=== PATIENT | male | born 1980 | race Caucasian/White ===

== ENCOUNTER 2024-07-01 18:16 | Emergency (ER) | payer BC, OTHER ==
--- OUTSIDE RECORDS SUMMARY | 2024-07-01 18:22 | XMS REPORT | Continuity of Care Document ---
Author Name Unknown Address [address] [facility] [place] [address] [facility] [place] [facility] [address] [facility] [place] [address] Care Team Providers Care Veterinarian Laboratory Animal Care Name Role Phone SARAI TUCKER Primary Care Physician Unavaila DYLON Aldana Attending Clinician Unavailable SARAI TUCKER Attending Clinician Unavailable [facility] Attending Clinician Unavailable Dylon Vargas MD Attending Clinician [phone] CHELSY KOEHLER Attending Clinician Unavailable Doctor Unassigned, [place] Attending Clinician U navailable Sarai Miranda Attending Clinician +[phone] Chelsy Koehler MD Attending Clinician [phone] Lab, Ang - Db Attending Clinician Unavailable JENNIFER TAYLOR Attending Clinician Unavailable NANCY BEST Attending Clinician Unavailable Nancy Best MD Attending Clinician [phone] Jennifer Pickering Attending Clinician +[phone] Brooke Nance LVN Attending Clinician + [phone] NOHELIA CUEVAS Attending Clinician Unavailable Jabier CORONADO, Pedro Attending Clinician + [phone] Nohelia Cuevas DO Attending Clinician [phone] JOSÉ SANTIZO Attending Clinician Unavailable JOSÉ SANTIZO Attending Clinician Unavailable José Santizo MD Attending Clinician +[phone] Luis Bueno MD Attending Clinician +- [phone] Jennifer Bello MD Attending Clinician +[phone] Laverne Bhardwaj MD Attending Clinician [phone] Therapist, [facility] Respiratory Attending Clinician JENNIFER Corey Attending Clinician Unavailable JENNIFER BELLO Attending Clinician Unavailable LAVERNE BHARDWAJ Attending Clinician UnavailLAVERNE Mtz Attending Clinician UnavailDylon Handley MD Attending Clinician [phone] Laverne Bhardwaj MD Attending Clinician [phone] LEYDI KOENIG Attending Clinician UnavailLEYDI Porter Attending Clinician UnavailLuis Wong MD Attending Clinician +[phone] Sarai Miranda Attending Clinician +[phone] [facility], [facility] Sleep Lab Attending Clinician UnavailLeydi Porter MD Attending Clinician + [phone] Radiology Attending Clinician Unavailable RADIOLOGY Attending Clinician Unavailable [facility] Attending Clinician Unavailable Garth CARBALLO PhD, Nohelia Attending Clinician [phone] Lowell MBBS, Yulisa Attending Clinician Unavailab NOHELIA Irvin Attending Clinician Unavailable Pob, [facility] Lab Main Attending Clinician Unavailzachariah veras Lab, Ang - Db Attending Clinician Unavailable Unknown, Attending Attending Clinician Unavailab NANCY Taylor Admitting Clinician Unavailable NOHELIA CUEVAS Admitting Clinician Unavailable Nohelia Cuevas DO Admitting Clinician +[phone] JOSÉ SANTIZO Admitting Clinician Unavailable DYLON VARGAS Admitting Clinician Unavailable Payers Payer Name Policy Type Policy Number Effective Date Expirati on Date Source [facility] STATE [id number] 2023 00:00:00 Problems Condition Name Condition Details Condition Category Status Onset Date Resolution Date Last Treatment Date Treating Clinician Comments Source Claudicati on of both lower extremitie s Claudicati on of both lower extremitie s Disease Active 12-12 00:00: 00 [facility] Abnormal ECG Abnormal ECG Disease Active 11-24 00:00: 00 [facility] Chest pain, unspecifie d type Chest pain, unspecifie d type Disease Active 8-30 00:00: 00 [facility] JAMEY (obstructi ve sleep apnea) JAMEY (obstructi ve sleep apnea) Disease Active 7-05 00:00: 00 [facility] Acute bronchitis , unspecifie d Acute bronchitis , unspecifie d Disease Active 09-21 00:00: 00 [facility] Acute thoracic back pain Acute thoracic back pain Disease Active 09-21 00:00: 00 [facility] Anatomical narrow angle, bilateral Anatomical narrow angle, bilateral Disease Active 09-21 00:00: 00 [facility] Asthma Asthma Disease Active 09-21 00:00: 00 [facility] Cervicalgi a Cervicalgi a Disease Active 09-21 00:00: 00 [facility] Back pain Back pain Disease Active 09-21 00:00: 00 [facility] Low back pain Low back pain Disease Active 09-21 00:00: 00 [facility] Chest pain, unspecifie d Chest pain, unspecifie d Disease Active 09-21 00:00: 00 [facility] Chronic migraine without aura, intractabl e, without status migrainosu s Chronic migraine without aura, intractabl e, without status migrainosu s Disease Active 09-21 00:00: 00 [facility] Depression , unspecifie d Depression , unspecifie d Disease Active 09-21 00:00: 00 [facility] Disappeara nce and of family member Disappeara nce and of family member Disease Active 09-21 00:00: 00 [facility] Exposure to potentiall y hazardous substance Exposure to potentiall y hazardous substance Disease Active 09-21 00:00: 00 Overview: Formattin g of this note might be different from the original. 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 Disease Active 09-21 00:00: 00 [facility] Lumbar spondylosi s Lumbar spondylosi s Disease Active 09-21 00:00: 00 [facility] Obesity Obesity Disease Active 09-21 00:00: 00 [facility] Counseling , unspecifie d Counseling , unspecifie d Disease Active 09-21 00:00: 00 [facility] Pain in joint involving pelvic region and thigh Pain in joint involving pelvic region and thigh Disease Active 09-21 00:00: 00 [facility] Essential hypertensi on Essential hypertensi on Disease Active 09-21 00:00: 00 [facility] Viral pneumonia, unspecifie d Viral pneumonia, unspecifie d Disease Active 09-21 00:00: 00 [facility] Uncontroll ed hypertensi on Uncontroll ed hypertensi on Disease Active 09-21 00:00: 00 [facility] Acute cough Acute cough Disease Active 08-24 00:00: 00 [facility] Acute cough Acute cough Disease Active 08-24 00:00: 00 [facility] Hypogammag lobulinemi a Hypogammag lobulinemi a Disease Active 08-24 00:00: 00 [facility] 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 08-24 00:00: 00 [facility] Chronic cough Chronic cough Disease Active 08-24 00:00: 00 [facility] Chronic low back pain Chronic low back pain Disease Active 03-28 00:00: 00 [facility] Other chest pain Other chest pain Disease Active 03-28 00:00: 00 [facility] Right upper quadrant abdominal pain Right upper quadrant abdominal pain Disease Active 03-28 00:00: 00 [facility] Tobacco use disorder Tobacco use disorder Disease Active 03-28 00:00: 00 Overview: Formattin g of this note might be different from the original. Oct 17, 2012 Entered By: Iftikhar MATTHEWS Comment: SMOKER [facility] Allergies, Adverse Reactions, Alerts Allergy Name Allergy Type Status Severity Reaction(s) Onset Date Inactive Date Treating Clinician Comments Source Nsaids (Non-James roidal Anti-Inf lammator y Drug) Propensi ty to adverse reaction s Active Swelling 12-07 00:00: 00 [facility] Nsaids (Non-James roidal Anti-Inf lammator y Drug) Propensi ty to adverse reaction s Active Swelling 12-07 00:00: 00 [facility] NSAIDS (NON-JAMES ROIDAL ANTI-INF LAMMATOR Y DRUG) Drug Class Active High Swelling 12-07 00:00: 00 [facility] BROMFENA C DRUG INGREDI Active Unknown-Cmnt 04-22 00:00: 00 [facility] Bromfena c Drug Allergy Active Unknown - See comments 04-22 00:00: 00 [facility] GABAPENT IN DRUG INGREDI Active Other-Cmnt 09-17 00:00: 00 [facility] Gabapent in Drug Allergy Active Other - See comments 09-17 00:00: 00 Causes stutterin g [facility] ANTIPYRI NE DRUG INGREDI Active Swelling 05-16 00:00: 00 [facility] Antipyri ne Drug Allergy Active Anaphylaxis 05-16 00:00: 00 [facility] IBUPROFE N DRUG INGREDI Active Other-Cmnt 11-28 00:00: 00 [facility] Ibuprofe n Drug Allergy Active Itching 11-28 00:00: 00 [facility] Social History Social Habit Start Date Stop Date Quantity Comments Source History of tobacco use Passive smoker [facility] Alcoholic beverage intake 2024-05-16 00:00:00 2024-05-16 00:00:00 Ex-drinker (finding) [facility] Education 2023-11-25 00:00:00 2023-11-25 00:00:00 16 [facility] Tobacco use and exposure 2023-09-22 00:00:00 2023-09-22 00:00:00 User of smokeless tobacco [facility] History of Social function 2023-09-07 00:00:00 2023-09-07 00:00:00 [facility] Sex assigned at 1980 00:00:00 1980 00:00:00 [facility] Smoking Status Start Date Stop Date Source Tobacco smoking consumption unknown [facility] Ex-smoker 2023-09-22 00:00:00 2023-09-22 00:00:00 [facility] Medications Ordered Medication Name Filled Medication Name Start Date Stop Date Current Medication? Ordering Clinician Indication Dosage Frequency Signature (SIG) Comments Components Source metFORMIN 500 mg 24 hr tablet 2023-03 08:22: 00 Yes 500mg Take 1 tablet by mouth daily with breakfast. [facility] losartan 50 mg tablet 2023-03 00:00: 00 01-10 04:59 :00 No [id number] 50mg Take 1 tablet by mouth in the morning and 1 tablet in the evening. [facility] carvediloL 12.5 mg tablet 2023-03 00:00: 00 01-10 04:59 :00 No [id number] 12.5mg Take 1 tablet by mouth in the morning and 1 tablet in the evening. Take with meals. [facility] diltiazem (CARDIZEM CD) 180 mg 24 hr capsule 2023-03 00:00: 00 01-10 04:59 :00 No [id number] 180mg Take 1 capsule by mouth in the morning. [facility] iopamidol (ISOVUE 370-500 mL) injection 85 mL 12-20:00: 00 12-20 18:03 :00 No [id number] 85mL 85 mL, Intravenou s, ONCE, 1 dose, On Tue12/21/23 at 1400, Routine [facility] losartan 50 mg tablet 12-12 00:00: 00 01-09 00:00 :00 No 50mg Take 1 tablet by mouth in the morning for 180 days. [facility] isosorbide mononitrate 30 mg 24 hr tablet 12-12 00:00: 00 01-09 00:00 :00 No [id number] 30mg Take 1 tablet by mouth at bedtime for 180 days. [facility] diltiazem (CARDIZEM CD) 180 mg 24 hr capsule 12-12 00:00: 00 01-09 00:00 :00 No [id number] 180mg Take 1 capsule by mouth in the morning for 180 days. [facility] carvediloL (COREG) tablet 12.5 mg 11-25 13:00: 00 Yes 12.5mg 12.5 mg, Oral, BID MEALS, First dose on Tue11/26/23 at 0800, Until Discontinu ed, Routine [facility] carvediloL 12.5 mg tablet 11-25 00:00: 00 01-09 00:00 :00 No [id number] 12.5mg Take 1 tablet by mouth in the morning and 1 tablet in the evening. Take with meals. Do all this for 60 days. [facility] losartan 25 mg tablet 11-25 00:00: 00 12-12 00:00 :00 No [id number] 25mg Take 1 tablet by mouth in the morning and 1 tablet in the evening. Do all this for 60 days. [facility] losartan (COZAAR) tablet 25 mg 11-24 23:30: 00 Yes 25mg 25 mg, Oral, BID, First dose on Tue11/25/23 at 1830, Until Discontinu ed, Routine [facility] enoxaparin (LOVENOX) injection 40 mg 11-24 22:00: 00 Yes 40mg 40 mg, Subcutaneo us, DAILY, First dose on Tue11/25/23 at 1700, Until Discontinu ed, Routine [facility] ondansetron (ZOFRAN (PF)) injection 4 mg 11-24 16:51: 34 Yes 4mg 4 mg, Slow IV Push, Q6HPRN, Starting on Tue11/25/23 at 1151, Until Discontinu ed, Routine, Nausea and Vomiting (N/V) [facility] acetaminoph en (TYLENOL) tablet 650 mg 11-24 16:51: 27 Yes 650mg 650 mg, Oral, Q6HPRN, Starting on Tue11/25/23 at 1151, Until Discontinu ed, Routine, Pain (scale 1-3) [facility] nitroglycer in (NITROSTAT) sublingual tablet 0.4 mg 11-24 14:45: 00 11-24 14:37 :00 No [id number] .4mg 0.4 mg, Sublingual , ONCE, 1 dose, On Tue11/25/23 at 0945, Routine [facility] cefpodoxime 200 mg tablet 11-22 11:07: 52 Yes 200mg Take 1 tablet by mouth in the morning and 1 tablet in the evening. [facility] nitroglycer in 0.4 mg sublingual tablet 11-22 00:00: 00 01-09 00:00 :[id number] 1 tablet under the tongue every 5 (five) minutes as needed for Chest pain. [facility] propranolol LA 160 mg 24 hr capsule 09-21 00:00: 00 11-25 00:00 :00 No [id number] 160mg Take 1 capsule by mouth in the morning. [facility] iopamidol (ISOVUE 370-500 mL) injection 85 mL 09-12 12:54: 00 09-12 12:59 :00 No [id number] 85mL 85 mL, Intravenou s, ONCE, 1 dose, On Tue09/13/23 at 0800, Routine [facility] budesonide- glycopyr-fo rmoterol (BREZTRI AEROSPHERE) 160-9-4.8 mcg/actuati on HFAA 09-06 08:55: 12 Yes [id number] 2{puff} Inhale 2 Puffs in the morning and 2 Puffs in the evening. [facility] albuterol 1.25 mg/3 mL nebulizer solution 09-06 08:55: 12 Yes [id number] 1.25mg Use 3 mL as directed every 6 (six) hours as needed for Wheezing. [facility] albuterol sulfate 90 mcg/actuati on AePB 09-06 08:55: 12 Yes [id number] 2{puff} Inhale 2 Puffs every 6 (six) hours as needed for Other (wheezing or shortness of breath). [facility] propranolol LA 160 mg 24 hr capsule 09-06 08:55: 12 09-21 00:00 :00 No 160mg Take 1 capsule by mouth in the morning. [facility] Immunizations Ordered Immunization Name Filled Immunization Name Date Status Comments Source HEPLISAV HEP B, ADULT 2 DOSE, IM 2023-12-14 00:00:00 Completed [facility] Flu Injectable MDCK Pres-Free (FLUCELVAX) 2023-12-14 00:00:00 Completed HEPLISAV HEP B, ADULT 2 DOSE, IM 2023-12-14 00:00:00 Completed [facility] Flu Injectable MDCK Pres-Free (FLUCELVAX) 2023-12-14 00:00:00 Completed HEPLISAV HEP B, ADULT 2 DOSE, IM 2023-12-14 00:00:00 Completed [facility] Flu Injectable MDCK Pres-Free (FLUCELVAX) 2023-12-14 00:00:00 Completed Pneumococcal 20 Conjugate, PCV20 (Prevnar 20) 2022-08-10 00:00:00 Completed TDAP 2022-08-10 00:00:00 Completed Pneumococcal 20 Conjugate, PCV20 (Prevnar 20) 2022-08-10 00:00:00 Completed [facility] TDAP 2022-08-10 00:00:00 Completed Pneumococcal 20 Conjugate, PCV20 (Prevnar 20) 2022-08-10 00:00:00 Completed [facility] TDAP 2022-08-10 00:00:00 Completed SARS-COV-2 COVID-19 MODERNA 12+ YRS VACCINE 2020-07-23 00:00:00 Completed SARS-COV-2 COVID-19 MODERNA 12+ YRS VACCINE 2020-07-23 00:00:00 Completed SARS-COV-2 COVID-19 MODERNA 12+ YRS VACCINE 2020-07-23 00:00:00 Completed SARS-COV-2 COVID-19 MODERNA 12+ YRS VACCINE 2020-06-25 00:00:00 Completed SARS-COV-2 COVID-19 MODERNA 12+ YRS VACCINE 2020-06-25 00:00:00 Completed SARS-COV-2 COVID-19 MODERNA 12+ YRS VACCINE 2020-06-25 00:00:00 Completed Influenza Virus Vaccine Quad IM Multi-dose 6+ MO 2019-01-30 00:00:00 Completed Influenza Virus Vaccine Quad IM Multi-dose 6+ MO 2019-01-30 00:00:00 Completed Influenza Virus Vaccine Quad IM Multi-dose 6+ MO 2019-01-30 00:00:00 Completed TD, NOS 2014-02-25 00:00:00 Completed TD, NOS 2014-02-25 00:00:00 Completed TD, NOS 2014-02-25 00:00:00 Completed Influenza Virus Vaccine 2013-12-26 00:00:00 Completed Influenza Virus Vaccine 2013-12-26 00:00:00 Completed Influenza Virus Vaccine 2013-12-26 00:00:00 Completed TD, NOS 2013-08-26 00:00:00 Completed TD, NOS 2013-08-26 00:00:00 Completed TD, NOS 2013-08-26 00:00:00 Completed TD, NOS 2011-11-01 00:00:00 Completed TD, NOS 2011-11-01 00:00:00 Completed TD, NOS 2011-11-01 00:00:00 Completed Influenza Virus Vaccine 2011-02-25 00:00:00 Completed Influenza Virus Vaccine 2011-02-25 00:00:00 Completed Influenza Virus Vaccine 2011-02-25 00:00:00 Completed Influenza Virus Vaccine 2011-01-14 00:00:00 Completed Influenza Virus Vaccine 2011-01-14 00:00:00 Completed Influenza Virus Vaccine 2011-01-14 00:00:00 Completed Influenza Virus Vaccine 2010-12-26 00:00:00 Completed Influenza Virus Vaccine 2010-12-26 00:00:00 Completed Influenza Virus Vaccine 2010-12-26 00:00:00 Completed Influenza Virus Vaccine 2008-12-26 00:00:00 Completed Influenza Virus Vaccine 2008-12-26 00:00:00 Completed Influenza Virus Vaccine 2008-12-26 00:00:00 Completed Influenza Virus Vaccine 2008-05-02 00:00:00 Completed Influenza Virus Vaccine 2008-05-02 00:00:00 Completed Influenza Virus Vaccine 2008-05-02 00:00:00 Completed TD, NOS 2004-03-28 00:00:00 Completed TD, NOS 2004-03-28 00:00:00 Completed TD, NOS 2004-03-28 00:00:00 Completed Pneumococcal 20 Conjugate, PCV20 (Prevnar 20) Unknown Completed [facility] SARS-COV-2 COVID-19 MODERNA 12+ YRS VACCINE Unknown Completed [facility] Influenza Virus Vaccine Unknown Completed [facility] Influenza Virus Vaccine Quad IM Multi-dose 6+ MO Unknown Completed [facility] TD, NOS Unknown Completed [facility] TDAP Unknown Completed [facility] Pneumococcal 20 Conjugate, PCV20 (Prevnar 20) Unknown Completed [facility] SARS-COV-2 COVID-19 MODERNA 12+ YRS VACCINE Unknown Completed [facility] Influenza Virus Vaccine Unknown Completed [facility] Influenza Virus Vaccine Quad IM Multi-dose 6+ MO Unknown Completed [facility] TD, NOS Unknown Completed [facility] TDAP Unknown Completed [facility] Pneumococcal 20 Conjugate, PCV20 (Prevnar 20) Unknown Completed [facility] SARS-COV-2 COVID-19 MODERNA 12+ YRS VACCINE Unknown Completed [facility] Influenza Virus Vaccine Unknown Completed [facility] Influenza Virus Vaccine Quad IM Multi-dose 6+ MO Unknown Completed [facility] TD, NOS Unknown Completed [facility] TDAP Unknown Completed [facility] Pneumococcal 20 Conjugate, PCV20 (Prevnar 20) Unknown Completed [facility] SARS-COV-2 COVID-19 MODERNA 12+ YRS VACCINE Unknown Completed [facility] Influenza Virus Vaccine Unknown Completed [facility] Influenza Virus Vaccine Quad IM Multi-dose 6+ MO Unknown Completed [facility] TD, NOS Unknown Completed [facility] TDAP Unknown Completed [facility] Pneumococcal 20 Conjugate, PCV20 (Prevnar 20) Unknown Completed [facility] SARS-COV-2 COVID-19 MODERNA 12+ YRS VACCINE Unknown Completed [facility] Influenza Virus Vaccine Unknown Completed [facility] Influenza Virus Vaccine Quad IM Multi-dose 6+ MO Unknown Completed [facility] TD, NOS Unknown Completed [facility] TDAP Unknown Completed [facility] Pneumococcal 20 Conjugate, PCV20 (Prevnar 20) Unknown Completed [facility] SARS-COV-2 COVID-19 MODERNA 12+ YRS VACCINE Unknown Completed [facility] Influenza Virus Vaccine Unknown Completed [facility] Influenza Virus Vaccine Quad IM Multi-dose 6+ MO Unknown Completed [facility] TD, NOS Unknown Completed [facility] TDAP Unknown Completed [facility] Pneumococcal 20 Conjugate, PCV20 (Prevnar 20) Unknown Completed [facility] SARS-COV-2 COVID-19 MODERNA 12+ YRS VACCINE Unknown Completed [facility] Influenza Virus Vaccine Unknown Completed [facility] Influenza Virus Vaccine Quad IM Multi-dose 6+ MO Unknown Completed [facility] TD, NOS Unknown Completed [facility] TDAP Unknown Completed [facility] Pneumococcal 20 Conjugate, PCV20 (Prevnar 20) Unknown Completed [facility] SARS-COV-2 COVID-19 MODERNA 12+ YRS VACCINE Unknown Completed [facility] Influenza Virus Vaccine Unknown Completed [facility] Influenza Virus Vaccine Quad IM Multi-dose 6+ MO Unknown Completed [facility] TD, NOS Unknown Completed [facility] TDAP Unknown Completed [facility] Pneumococcal 20 Conjugate, PCV20 (Prevnar 20) Unknown Completed [facility] SARS-COV-2 COVID-19 MODERNA 12+ YRS VACCINE Unknown Completed [facility] Influenza Virus Vaccine Unknown Completed [facility] Influenza Virus Vaccine Quad IM Multi-dose 6+ MO Unknown Completed [facility] TD, NOS Unknown Completed [facility] TDAP Unknown Completed [facility] Pneumococcal 20 Conjugate, PCV20 (Prevnar 20) Unknown Completed [facility] SARS-COV-2 COVID-19 MODERNA 12+ YRS VACCINE Unknown Completed [facility] Influenza Virus Vaccine Unknown Completed [facility] Influenza Virus Vaccine Quad IM Multi-dose 6+ MO Unknown Completed [facility] TD, NOS Unknown Completed [facility] TDAP Unknown Completed [facility] Pneumococcal 20 Conjugate, PCV20 (Prevnar 20) Unknown Completed [facility] SARS-COV-2 COVID-19 MODERNA 12+ YRS VACCINE Unknown Completed [facility] Influenza Virus Vaccine Unknown Completed [facility] Influenza Virus Vaccine Quad IM Multi-dose 6+ MO Unknown Completed [facility] TD, NOS Unknown Completed [facility] TDAP Unknown Completed [facility] Pneumococcal 20 Conjugate, PCV20 (Prevnar 20) Unknown Completed [facility] SARS-COV-2 COVID-19 MODERNA 12+ YRS VACCINE Unknown Completed [facility] Influenza Virus Vaccine Unknown Completed [facility] Influenza Virus Vaccine Quad IM Multi-dose 6+ MO Unknown Completed [facility] TD, NOS Unknown Completed [facility] TDAP Unknown Completed [facility] Pneumococcal 20 Conjugate, PCV20 (Prevnar 20) Unknown Completed [facility] SARS-COV-2 COVID-19 MODERNA 12+ YRS VACCINE Unknown Completed [facility] Influenza Virus Vaccine Unknown Completed [facility] Influenza Virus Vaccine Quad IM Multi-dose 6+ MO Unknown Completed [facility] TD, NOS Unknown Completed [facility] TDAP Unknown Completed [facility] Pneumococcal 20 Conjugate, PCV20 (Prevnar 20) Unknown Completed [facility] SARS-COV-2 COVID-19 MODERNA 12+ YRS VACCINE Unknown Completed [facility] Influenza Virus Vaccine Unknown Completed [facility] Influenza Virus Vaccine Quad IM Multi-dose 6+ MO Unknown Completed [facility] TD, NOS Unknown Completed [facility] TDAP Unknown Completed [facility] Pneumococcal 20 Conjugate, PCV20 (Prevnar 20) Unknown Completed [facility] SARS-COV-2 COVID-19 MODERNA 12+ YRS VACCINE Unknown Completed [facility] Influenza Virus Vaccine Unknown Completed [facility] Influenza Virus Vaccine Quad IM Multi-dose 6+ MO Unknown Completed [facility] TD, NOS Unknown Completed [facility] TDAP Unknown Completed [facility] Pneumococcal 20 Conjugate, PCV20 (Prevnar 20) Unknown Completed [facility] SARS-COV-2 COVID-19 MODERNA 12+ YRS VACCINE Unknown Completed [facility] Influenza Virus Vaccine Unknown Completed [facility] Influenza Virus Vaccine Quad IM Multi-dose 6+ MO Unknown Completed [facility] TD, NOS Unknown Completed [facility] TDAP Unknown Completed [facility] Pneumococcal 20 Conjugate, PCV20 (Prevnar 20) Unknown Completed [facility] SARS-COV-2 COVID-19 MODERNA 12+ YRS VACCINE Unknown Completed [facility] Influenza Virus Vaccine Unknown Completed [facility] Influenza Virus Vaccine Quad IM Multi-dose 6+ MO Unknown Completed [facility] TD, NOS Unknown Completed [facility] TDAP Unknown Completed [facility] Pneumococcal 20 Conjugate, PCV20 (Prevnar 20) Unknown Completed [facility] SARS-COV-2 COVID-19 MODERNA 12+ YRS VACCINE Unknown Completed [facility] Pneumococcal 20 Conjugate, PCV20 (Prevnar 20) Unknown Completed [facility] SARS-COV-2 COVID-19 MODERNA 12+ YRS VACCINE Unknown Completed [facility] Influenza Virus Vaccine Unknown Completed [facility] Influenza Virus Vaccine Quad IM Multi-dose 6+ MO Unknown Completed [facility] TD, NOS Unknown Completed [facility] Influenza Virus Vaccine Unknown Completed [facility] TDAP Unknown Completed [facility] Pneumococcal 20 Conjugate, PCV20 (Prevnar 20) Unknown Completed [facility] SARS-COV-2 COVID-19 MODERNA 12+ YRS VACCINE Unknown Completed [facility] Influenza Virus Vaccine Unknown Completed [facility] Influenza Virus Vaccine Quad IM Multi-dose 6+ MO Unknown Completed [facility] TD, NOS Unknown Completed [facility] TDAP Unknown Completed [facility] Pneumococcal 20 Conjugate, PCV20 (Prevnar 20) Unknown Completed [facility] SARS-COV-2 COVID-19 MODERNA 12+ YRS VACCINE Unknown Completed [facility] Influenza Virus Vaccine Unknown Completed [facility] Influenza Virus Vaccine Quad IM Multi-dose 6+ MO Unknown Completed [facility] TD, NOS Unknown Completed [facility] TDAP Unknown Completed [facility] HEPLISAV HEP B, ADULT 2 DOSE, IM Unknown Completed [facility] Flu Injectable MDCK Pres-Free (FLUCELVAX) Unknown Completed [facility] Pneumococcal 20 Conjugate, PCV20 (Prevnar 20) Unknown Completed [facility] SARS-COV-2 COVID-19 MODERNA 12+ YRS VACCINE Unknown Completed [facility] Influenza Virus Vaccine Unknown Completed [facility] Influenza Virus Vaccine Quad IM Multi-dose 6+ MO Unknown Completed [facility] TD, NOS Unknown Completed [facility] TDAP Unknown Completed [facility] HEPLISAV HEP B, ADULT 2 DOSE, IM Unknown Completed [facility] Flu Injectable MDCK Pres-Free (FLUCELVAX) Unknown Completed [facility] Influenza Virus Vaccine Quad IM Multi-dose 6+ MO Unknown Completed [facility] TD, NOS Unknown Completed [facility] TDAP Unknown Completed [facility] Pneumococcal 20 Conjugate, PCV20 (Prevnar 20) Unknown Completed [facility] SARS-COV-2 COVID-19 MODERNA 12+ YRS VACCINE Unknown Completed [facility] Influenza Virus Vaccine Unknown Completed [facility] Influenza Virus Vaccine Quad IM Multi-dose 6+ MO Unknown Completed [facility] TD, NOS Unknown Completed [facility] TDAP Unknown Completed [facility] Pneumococcal 20 Conjugate, PCV20 (Prevnar 20) Unknown Completed [facility] SARS-COV-2 COVID-19 MODERNA 12+ YRS VACCINE Unknown Completed [facility] Influenza Virus Vaccine Unknown Completed [facility] Influenza Virus Vaccine Quad IM Multi-dose 6+ MO Unknown Completed [facility] TD, NOS Unknown Completed [facility] TDAP Unknown Completed [facility] Pneumococcal 20 Conjugate, PCV20 (Prevnar 20) Unknown Completed [facility] SARS-COV-2 COVID-19 MODERNA 12+ YRS VACCINE Unknown Completed [facility] Influenza Virus Vaccine Unknown Completed [facility] Influenza Virus Vaccine Quad IM Multi-dose 6+ MO Unknown Completed [facility] TD, NOS Unknown Completed [facility] TDAP Unknown Completed [facility] Pneumococcal 20 Conjugate, PCV20 (Prevnar 20) Unknown Completed [facility] SARS-COV-2 COVID-19 MODERNA 12+ YRS VACCINE Unknown Completed [facility] Influenza Virus Vaccine Unknown Completed [facility] Influenza Virus Vaccine Quad IM Multi-dose 6+ MO Unknown Completed [facility] TD, NOS Unknown Completed [facility] TDAP Unknown Completed [facility] Pneumococcal 20 Conjugate, PCV20 (Prevnar 20) Unknown Completed [facility] SARS-COV-2 COVID-19 MODERNA 12+ YRS VACCINE Unknown Completed [facility] Influenza Virus Vaccine Unknown Completed [facility] Influenza Virus Vaccine Quad IM Multi-dose 6+ MO Unknown Completed [facility] TD, NOS Unknown Completed [facility] TDAP Unknown Completed [facility] Pneumococcal 20 Conjugate, PCV20 (Prevnar 20) Unknown Completed [facility] SARS-COV-2 COVID-19 MODERNA 12+ YRS VACCINE Unknown Completed [facility] Influenza Virus Vaccine Unknown Completed [facility] Influenza Virus Vaccine Quad IM Multi-dose 6+ MO Unknown Completed [facility] TD, NOS Unknown Completed [facility] TDAP Unknown Completed [facility] Pneumococcal 20 Conjugate, PCV20 (Prevnar 20) Unknown Completed [facility] SARS-COV-2 COVID-19 MODERNA 12+ YRS VACCINE Unknown Completed [facility] Influenza Virus Vaccine Unknown Completed [facility] Influenza Virus Vaccine Quad IM Multi-dose 6+ MO Unknown Completed [facility] TD, NOS Unknown Completed [facility] TDAP Unknown Completed [facility] Pneumococcal 20 Conjugate, PCV20 (Prevnar 20) Unknown Completed [facility] SARS-COV-2 COVID-19 MODERNA 12+ YRS VACCINE Unknown Completed [facility] Influenza Virus Vaccine Unknown Completed [facility] Influenza Virus Vaccine Quad IM Multi-dose 6+ MO Unknown Completed [facility] TD, NOS Unknown Completed [facility] TDAP Unknown Completed [facility] Pneumococcal 20 Conjugate, PCV20 (Prevnar 20) Unknown Completed [facility] SARS-COV-2 COVID-19 MODERNA 12+ YRS VACCINE Unknown Completed [facility] Influenza Virus Vaccine Unknown Completed [facility] Influenza Virus Vaccine Quad IM Multi-dose 6+ MO Unknown Completed [facility] TD, NOS Unknown Completed [facility] TDAP Unknown Completed [facility] Pneumococcal 20 Conjugate, PCV20 (Prevnar 20) Unknown Completed [facility] SARS-COV-2 COVID-19 MODERNA 12+ YRS VACCINE Unknown Completed [facility] Influenza Virus Vaccine Unknown Completed [facility] Influenza Virus Vaccine Quad IM Multi-dose 6+ MO Unknown Completed [facility] TD, NOS Unknown Completed [facility] TDAP Unknown Completed [facility] Pneumococcal 20 Conjugate, PCV20 (Prevnar 20) Unknown Completed [facility] SARS-COV-2 COVID-19 MODERNA 12+ YRS VACCINE Unknown Completed [facility] Influenza Virus Vaccine Unknown Completed [facility] Influenza Virus Vaccine Quad IM Multi-dose 6+ MO Unknown Completed [facility] TD, NOS Unknown Completed [facility] TDAP Unknown Completed [facility] Pneumococcal 20 Conjugate, PCV20 (Prevnar 20) Unknown Completed [facility] SARS-COV-2 COVID-19 MODERNA 12+ YRS VACCINE Unknown Completed [facility] Influenza Virus Vaccine Unknown Completed [facility] Influenza Virus Vaccine Quad IM Multi-dose 6+ MO Unknown Completed [facility] TD, NOS Unknown Completed [facility] TDAP Unknown Completed [facility] Pneumococcal 20 Conjugate, PCV20 (Prevnar 20) Unknown Completed [facility] SARS-COV-2 COVID-19 MODERNA 12+ YRS VACCINE Unknown Completed [facility] Influenza Virus Vaccine Unknown Completed [facility] Influenza Virus Vaccine Quad IM Multi-dose 6+ MO Unknown Completed [facility] TD, NOS Unknown Completed [facility] TDAP Unknown Completed [facility] Pneumococcal 20 Conjugate, PCV20 (Prevnar 20) Unknown Completed [facility] SARS-COV-2 COVID-19 MODERNA 12+ YRS VACCINE Unknown Completed [facility] Influenza Virus Vaccine Unknown Completed [facility] Influenza Virus Vaccine Quad IM Multi-dose 6+ MO Unknown Completed [facility] TD, NOS Unknown Completed [facility] TDAP Unknown Completed [facility] Pneumococcal 20 Conjugate, PCV20 (Prevnar 20) Unknown Completed [facility] SARS-COV-2 COVID-19 MODERNA 12+ YRS VACCINE Unknown Completed [facility] Influenza Virus Vaccine Unknown Completed [facility] Influenza Virus Vaccine Quad IM Multi-dose 6+ MO Unknown Completed [facility] TD, NOS Unknown Completed [facility] TDAP Unknown Completed [facility] Pneumococcal 20 Conjugate, PCV20 (Prevnar 20) Unknown Completed [facility] SARS-COV-2 COVID-19 MODERNA 12+ YRS VACCINE Unknown Completed [facility] Influenza Virus Vaccine Unknown Completed [facility] Influenza Virus Vaccine Quad IM Multi-dose 6+ MO Unknown Completed [facility] TD, NOS Unknown Completed [facility] TDAP Unknown Completed [facility] Pneumococcal 20 Conjugate, PCV20 (Prevnar 20) Unknown Completed [facility] SARS-COV-2 COVID-19 MODERNA 12+ YRS VACCINE Unknown Completed [facility] Influenza Virus Vaccine Unknown Completed [facility] Influenza Virus Vaccine Quad IM Multi-dose 6+ MO Unknown Completed [facility] TD, NOS Unknown Completed [facility] TDAP Unknown Completed [facility] Pneumococcal 20 Conjugate, PCV20 (Prevnar 20) Unknown Completed [facility] SARS-COV-2 COVID-19 MODERNA 12+ YRS VACCINE Unknown Completed [facility] Influenza Virus Vaccine Unknown Completed [facility] Influenza Virus Vaccine Quad IM Multi-dose 6+ MO Unknown Completed [facility] TD, NOS Unknown Completed [facility] TDAP Unknown Completed [facility] Vital Signs Vital Name Observation Time Observation Value Comments S ource Systolic blood pressure 2024-03-12 21:57:00 132 mm[Hg] [facility] Diastolic blood pressure 2024-03-12 21:57:00 74 mm[Hg] [facility] Heart rate 2024-03-12 21:57:00 58 /min [facility] Body temperature 2024-03-12 21:57:00 36.28 Fina [facility] Body height 2024-03-12 21:57:00 170.2 cm [facility] Body weight 2024-03-12 21:57:00 90.855 kg [facility] BMI 2024-03-12 21:57:00 31.37 kg/m2 [facility] Oxygen saturation in Arterial blood by Pulse oximetry 2024-03-12 21:57:00 98 /min [facility] Systolic blood pressure 2024-03-01 14:12:00 109 mm[Hg] [facility] Diastolic blood pressure 2024-03-01 14:12:00 74 mm[Hg] [facility] Heart rate 2024-03-01 14:12:00 74 /min [facility] Body temperature 2024-03-01 14:12:00 36.61 Fina [facility] Body height 2024-03-01 14:12:00 175.3 cm [facility] Body weight 2024-03-01 14:12:00 90.719 kg [facility] BMI 2024-03-01 14:12:00 29.53 kg/m2 [facility] Oxygen saturation in Arterial blood by Pulse oximetry 2024-03-01 14:12:00 99 /min [facility] Systolic blood pressure 2024-01-10 14:38:00 122 mm[Hg] [facility] Diastolic blood pressure 2024-01-10 14:38:00 85 mm[Hg] [facility] Heart rate 2024-01-10 14:38:00 63 /min [facility] Respiratory rate 2024-01-10 14:38:00 18 /min [facility] Body height 2024-01-10 14:38:00 170.2 cm [facility] Body weight 2024-01-10 14:38:00 90.992 kg [facility] BMI 2024-01-10 14:38:00 31.42 kg/m2 [facility] Oxygen saturation in Arterial blood by Pulse oximetry 2024-01-10 14:38:00 98 /min [facility] Systolic blood pressure 2023-12-14 16:38:00 116 mm[Hg] [facility] Diastolic blood pressure 2023-12-14 16:38:00 79 mm[Hg] [facility] Heart rate 2023-12-14 16:38:00 69 /min [facility] Body temperature 2023-12-14 16:38:00 36.61 Fina [facility] Respiratory rate 2023-12-14 16:38:00 18 /min [facility] Body height 2023-12-14 16:38:00 170.2 cm [facility] Body weight 2023-12-14 16:38:00 90.946 kg [facility] BMI 2023-12-14 16:38:00 31.40 kg/m2 [facility] Oxygen saturation in Arterial blood by Pulse oximetry 2023-12-14 16:38:00 99 /min [facility] Systolic blood pressure 2023-12-13 14:34:00 131 mm[Hg] [facility] Diastolic blood pressure 2023-12-13 14:34:00 102 mm[Hg] [facility] Heart rate 2023-12-13 14:29:00 84 /min [facility] Respiratory rate 2023-12-13 14:29:00 18 /min [facility] Body height 2023-12-13 14:29:00 170.2 cm [facility] Body weight 2023-12-13 14:29:00 91.581 kg [facility] BMI 2023-12-13 14:29:00 31.62 kg/m2 [facility] Oxygen saturation in Arterial blood by Pulse oximetry 2023-12-13 14:29:00 99 /min [facility] Systolic blood pressure 2023-12-08 12:07:00 129 mm[Hg] [facility] Diastolic blood pressure 2023-12-08 12:07:00 89 mm[Hg] [facility] Heart rate 2023-12-08 12:07:00 77 /min [facility] Body temperature 2023-12-08 12:07:00 36.78 Fina [facility] Body height 2023-12-08 12:07:00 170.2 cm [facility] Body weight 2023-12-08 12:07:00 92.262 kg [facility] BMI 2023-12-08 12:07:00 31.86 kg/m2 [facility] Oxygen saturation in Arterial blood by Pulse oximetry 2023-12-08 12:07:00 99 /min [facility] Systolic blood pressure 2023-11-30 15:26:00 140 mm[Hg] asymptomatic [facility] Diastolic blood pressure 2023-11-30 15:26:00 98 mm[Hg] asymptomatic [facility] Heart rate 2023-11-30 15:26:00 75 /min [facility] Body temperature 2023-11-30 15:26:00 36.17 Fina [facility] Respiratory rate 2023-11-30 15:26:00 20 /min [facility] Body height 2023-11-30 15:26:00 170.2 cm [facility] Body weight 2023-11-30 15:26:00 91.581 kg [facility] BMI 2023-11-30 15:26:00 31.62 kg/m2 [facility] Oxygen saturation in Arterial blood by Pulse oximetry 2023-11-30 15:26:00 99 /min [facility] Systolic blood pressure 2023-11-26 16:28:00 129 mm[Hg] [facility] Diastolic blood pressure 2023-11-26 16:28:00 78 mm[Hg] [facility] Heart rate 2023-11-26 16:28:00 63 /min [facility] Body temperature 2023-11-26 16:28:00 36.28 Fina [facility] Respiratory rate 2023-11-26 16:28:00 18 /min [facility] Oxygen saturation in Arterial blood by Pulse oximetry 2023-11-26 16:28:00 96 /min [facility] Body height 2023-11-25 19:00:00 170.2 cm [facility] Body weight 2023-11-25 19:00:00 90 kg [facility] BMI 2023-11-25 19:00:00 31.08 kg/m2 [facility] Systolic blood pressure 2023-11-25 17:00:00 126 mm[Hg] [facility] Diastolic blood pressure 2023-11-25 17:00:00 91 mm[Hg] [facility] Heart rate 2023-11-25 17:00:00 63 /min [facility] Respiratory rate 2023-11-25 17:00:00 18 /min [facility] Oxygen saturation in Arterial blood by Pulse oximetry 2023-11-25 17:00:00 98 /min [facility] Body temperature 2023-11-25 15:08:00 36.72 Fina [facility] Body height 2023-11-25 15:08:00 170.2 cm [facility] Body weight 2023-11-25 15:08:00 91.627 kg [facility] BMI 2023-11-25 15:08:00 31.64 kg/m2 [facility] Systolic blood pressure 2023-11-25 13:41:00 145 mm[Hg] [facility] Diastolic blood pressure 2023-11-25 13:41:00 99 mm[Hg] [facility] Heart rate 2023-11-25 13:41:00 78 /min [facility] Oxygen saturation in Arterial blood by Pulse oximetry 2023-11-25 13:41:00 99 /min [facility] Respiratory rate 2023-11-25 13:39:00 16 /min [facility] Body height 2023-11-25 13:39:00 170.2 cm [facility] Body weight 2023-11-25 13:39:00 91.717 kg [facility] BMI 2023-11-25 13:39:00 31.67 kg/m2 [facility] Systolic blood pressure 2023-11-23 21:30:00 128 mm[Hg] [facility] Diastolic blood pressure 2023-11-23 21:30:00 92 mm[Hg] [facility] Heart rate 2023-11-23 21:30:00 61 /min [facility] Respiratory rate 2023-11-23 21:30:00 17 /min [facility] Oxygen saturation in Arterial blood by Pulse oximetry 2023-11-23 21:30:00 99 /min [facility] Body temperature 2023-11-23 16:55:00 36.33 Fina [facility] Body height 2023-11-23 16:55:00 170.2 cm [facility] Body weight 2023-11-23 16:55:00 92.126 kg [facility] BMI 2023-11-23 16:55:00 31.81 kg/m2 [facility] Systolic blood pressure 2023-11-23 16:07:00 141 mm[Hg] bp recheck [facility] Diastolic blood pressure 2023-11-23 16:07:00 101 mm[Hg] bp recheck [facility] Heart rate 2023-11-23 16:07:00 75 /min [facility] Body temperature 2023-11-23 16:02:00 36.33 Fina [facility] Respiratory rate 2023-11-23 16:02:00 18 /min [facility] Body height 2023-11-23 16:02:00 170.2 cm [facility] Body weight 2023-11-23 16:02:00 92.126 kg [facility] BMI 2023-11-23 16:02:00 31.81 kg/m2 [facility] Oxygen saturation in Arterial blood by Pulse oximetry 2023-11-23 16:02:00 98 /min room air [facility] Systolic blood pressure 2023-10-27 15:57:00 157 mm[Hg] [facility] Diastolic blood pressure 2023-10-27 15:57:00 110 mm[Hg] [facility] Heart rate 2023-10-27 15:56:00 70 /min [facility] Respiratory rate 2023-10-27 15:56:00 16 /min [facility] Body height 2023-10-27 15:56:00 170.2 cm [facility] Body weight 2023-10-27 15:56:00 90.402 kg [facility] BMI 2023-10-27 15:56:00 31.21 kg/m2 [facility] Oxygen saturation in Arterial blood by Pulse oximetry 2023-10-27 15:56:00 99 /min [facility] Body height 2023-10-13 14:52:00 170.2 cm [facility] Body weight 2023-10-13 14:52:00 90.674 kg [facility] BMI 2023-10-13 14:52:00 31.31 kg/m2 [facility] Systolic blood pressure 2023-10-05 16:23:00 128 mm[Hg] [facility] Diastolic blood pressure 2023-10-05 16:23:00 89 mm[Hg] [facility] Heart rate 2023-10-05 16:23:00 62 /min [facility] Body temperature 2023-10-05 16:23:00 36.22 Fina [facility] Respiratory rate 2023-10-05 16:23:00 18 /min [facility] Body height 2023-10-05 16:23:00 170.2 cm [facility] Body weight 2023-10-05 16:23:00 88.361 kg [facility] BMI 2023-10-05 16:23:00 30.51 kg/m2 [facility] Oxygen saturation in Arterial blood by Pulse oximetry 2023-10-05 16:23:00 98 /min room air [facility] Systolic blood pressure 2023-09-22 18:31:00 138 mm[Hg] [facility] Diastolic blood pressure 2023-09-22 18:31:00 86 mm[Hg] [facility] Heart rate 2023-09-22 18:31:00 62 /min [facility] Body height 2023-09-22 18:31:00 170.2 cm [facility] Body weight 2023-09-22 18:31:00 90.493 kg [facility] BMI 2023-09-22 18:31:00 31.25 kg/m2 [facility] Oxygen saturation in Arterial blood by Pulse oximetry 2023-09-22 18:31:00 98 /min [facility] Systolic blood pressure 2023-09-07 13:55:00 134 mm[Hg] asymptaomatic states is due to pain 134/97 [facility] Diastolic blood pressure 2023-09-07 13:55:00 97 mm[Hg] asymptaomatic states is due to pain 134/97 [facility] Heart rate 2023-09-07 13:55:00 64 /min [facility] Body temperature 2023-09-07 13:55:00 36 Fina [facility] Respiratory rate 2023-09-07 13:55:00 20 /min [facility] Body height 2023-09-07 13:55:00 170.2 cm [facility] Body weight 2023-09-07 13:55:00 89.994 kg [facility] BMI 2023-09-07 13:55:00 31.07 kg/m2 [facility] Oxygen saturation in Arterial blood by Pulse oximetry 2023-09-07 13:55:00 98 /min [facility] Systolic blood pressure 2023-08-25 15:02:00 136 mm[Hg] [facility] Diastolic blood pressure 2023-08-25 15:02:00 90 mm[Hg] [facility] Heart rate 2023-08-25 15:02:00 87 /min [facility] Respiratory rate 2023-08-25 15:02:00 14 /min [facility] Body height 2023-08-25 15:02:00 170.2 cm [facility] Body weight 2023-08-25 15:02:00 90.447 kg [facility] BMI 2023-08-25 15:02:00 31.23 kg/m2 [facility] Oxygen saturation in Arterial blood by Pulse oximetry 2023-08-25 15:02:00 98 /min [facility] Procedures Procedure Date / Time Performed Performing Clinician Source LIPASE 2024-03-01 14:42:00 Sarai Tucker [facility] COMP. METABOLIC PANEL ([id number]) 2024-03-01 14:42:00 Sarai Tucker [facility] CBC WITH DIFF 2024-03-01 14:42:00 Sarai Tucker [facility] MEDARDO MULTI LEVEL - BY VASCULAR LAB 2023-12-27 21:22:00 Nancy Best [facility] MEASLES IGG 2023-12-14 17:25:00 Dylon Vargas [facility] HEPLISAV HEP B VACCINE,ADULT 2 DOSE,IM 2023-12-14 17:07:08 Dylon Vargas [facility] FLU VACC (), 6 MO-64 YRS, .5ML, IM, TIV (FLUCELVAX) 2023-12-14 17:07:08 Dylon Vargas [facility] EKG-12 LEAD 2023-11-26 00:26:46 Pedro Eugene [facility] TROPONIN I 2023-11-25 20:08:00 Nohelia Cuevas [facility] TRANSTHORACIC ECHO (TTE) COMPLETE 2023-11-25 18:38:00 Nohelia Cuevas [facility] TROPONIN I 2023-11-25 17:29:00 Nohelia Cuevas [facility] TROPONIN I 2023-11-25 15:33:00 Pedro Eugene [facility] COMP. METABOLIC PANEL ([id number]) 2023-11-25 15:33:00 Pedro Eugene [facility] CBC WITH DIFF 2023-11-25 15:33:[address] [facility]MIN[facility]-BNP 2023-11-25 15:33:00 Danette Eugene [facility] TROPONIN I 2023-11-23 20:27:00 [facility] 2023-11-23 18:00:00 [facility]OUTINE & RHYTHM STRIP 2023-11-23 17:44:39 [facility] 2023-11-23 17:33[facility]00 [facility] COMP. METABOLIC PANEL ([id number]) 2023-11-23 17:33:00 [facility] DIFF 2023-11-23 17:33:00 [facility] N-TERMINAL PRO-BNP 2023-11-23 17:33:00 [facility]OUTINE & RHYTHM STRIP 2023-11-23 16:56:23 Joceline [facility] HB ECG ROUTINE & RHYTHM STRIP 2023-11-23 16:11:07 Dylon Vargas [facility] SLEEP STUDY DATA REPORT 2023-09-28 22:52:45 Gaby Tucker [facility] SLEEP LAB RESULTS 2023-09-28 22:35:38 Sarai Tucker [facility] CT THORAX W CONTRAST 2023-09-13 12:59:05 Yulisa Etienne [facility] XR CHEST 2 VW 2023-08-31 13:09:00 Luis Bueno Un [facility] CBC WITH DIFF 2023-08-26 14:11:00 [facility]o [facility]/2 AG-AB WITH REFLEX 2023-08-26 14:11:00 Luis Bueno [facility] REFERRAL- REQUEST/RESPONSE 2023-08-15 20:15:41 Doctor Unassigned, [place] [facility] REFERRAL- REQUEST/RESPONSE 2023-08-15 20:15:27 Doctor Unassigned, [place] [facility] Encounters Start Date/Time End Date/Time Encounter Type Admission Type Attending [facility] Facility Care Department Encounter ID Source 2024-06-29 16:30:00 2024-06-29 16:30:00 Outpatient SARAI TELLEZ [facility] [id number] [facility] 2024-05-16 10:15:00 2024-05-16 10:30:00 Crop Supervisor Visit [facility] Dylon Vargas [facility] 1..840.114 350.1.13.10 4.2.7.2.686 [id number] [facility] 2024-05-16 09:00:00 2024-05-16 09:00:00 Outpatient DYLON COLON [facility] [id number] [facility] 2024-05-15 00:00:00 2024-05-15 00:00:00 Outpatient CHELSY MÁRQUEZ [facility] [id number] [facility] 2023-08-15 00:00:00 2024-05-12 07:45:05 Orders Only Doctor Unassigned, [place] Doctor Unassigned, [place] [facility] ([facility]) 1.2.840.114 350.1.13.10 4.2.7.2.686 [id number] [facility] 2023-08-15 00:00:00 2024-05-12 07:44:50 Orders Only Doctor Unassigned, [place] Doctor Unassigned, [place] [facility] 1.2.840.114 350.1.13.10 4.2.7.2.686 [id number] [facility] 2023-09-28 00:00:00 2024-05-12 07:23:06 Orders Only Sarai Tucker [facility] 1.2.840.114 350.1.13.10 4.2.7.2.686 [id number] [facility] 2023-09-28 00:00:00 2024-05-12 07:22:57 Orders Only Sarai Tucker [facility] ([facility] 1.2.840.114 350.1.13.10 4.2.7.2.686 [id number] [facility] 2024-05-02 00:00:00 2024-05-02 12:33:14 Patient Secure Msartie VargasDylon [facility] 1.2.840.114 350.1.13.10 4.2.7.2.686 [id number] [facility] 2024-03-12 16:00:00 2024-03-12 16:50:51 Outpatient R CHELSY KOEHLER [facility] [id number] [facility] 2024-03-12 16:00:00 2024-03-12 16:50:51 Office Visit Chelsy Koehler [facility] 1.2.840.114 350.1.13.10 4.2.7.2.686 [id number] [facility] 2024-03-06 15:55:00 2024-03-06 15:55:00 Outpatient R SARAI TUCKER [facility] [id number] [facility] 2024-03-01 09:45:00 2024-03-01 10:00:00 Crop Supervisor Visit Willie Davila Leslie A Lab, Ang - Db [facility] 1.2.840.114 350.1.13.10 4.2.7.2.686 [id number] [facility] 2024-03-01 08:00:00 2024-03-01 08:29:56 Outpatient R SARAI TUCKER [facility] [id number] [facility] 2024-03-01 08:00:00 2024-03-01 08:29:56 Office Visit Sarai Tucker [facility] 1..840.114 350.1.13.10 4.2.7.2.686 [id number] [facility] 2024-01-10 09:30:00 2024-01-10 10:11:56 Outpatient R NANCY BEST [facility] [id number] [facility] 2024-01-10 09:30:00 2024-01-10 10:11:56 Office Visit Sudhir [facility] BUILDING 1.2.840.114 350.1.13.10 4.2.7.2.686 [id number] [facility] 2024-01-02 00:00:00 2024-01-02 16:29:01 [facility] 1.2.840.114 350.1.13.10 4.2.7.2.686 [id number] [facility] 2023-12-27 15:50:35 2023-12-27 23:59:00 Outpatient R NANCY BEST [facility] [id number] [facility] 2023-12-27 15:50:35 2023-12-27 23:59:00 Hospital Encounter Sudhir [facility] BUILDING 1.2.840.114 350.1.13.10 4.2.7.2.686 [id number] [facility] 2023-12-23 16:00:00 2023-12-23 16:00:00 Outpatient NANCY MCGEE [facility] [id number] [facility] 2023-12-21 08:08:45 2023-12-21 23:59:00 [facility] [id number] 2023-12-21 08:08:45 2023-12-21 23:59:00 [facility] 1.2.840.114 350.1.13.10 4.2.7.2.686 [id number] [facility] 2023-12-14 12:30:00 2023-12-14 12:45:00 Crop Supervisor Visit [facility] Dylon Vargas [facility] 1.2840.114 350.1.13.10 4.2.7.2.686 [id number] [facility] 2023-12-14 12:30:00 2023-12-14 12:30:00 Outpatient Iftikhar DYLON VARGAS [facility] [id number] [facility] 2023-12-14 11:30:00 2023-12-14 12:00:00 Office Visit Dylon Vargas [facility] 1.2840.114 350.1.13.10 4.2.7.2.686 [id number] [facility] 2023-12-13 00:00:00 2023-12-13 13:14:11 Patient Secure Jennifer Davalos [facility] 1.2.840.114 350.1.13.10 4.2.7.2.686 [id number] [facility] 2023-12-13 09:30:00 2023-12-13 10:28:37 Outpatient R NANCY BEST [facility] [id number] [facility] 2023-12-13 09:30:00 2023-12-13 10:28:37 Office Visit [facility] 1.2.840.114 350.1.13.10 4.2.7.2.686 [id number] [facility] 2023-12-08 07:00:00 2023-12-08 07:30:53 Outpatient R SARAI TUCKER [facility] [id number] [facility] 2023-12-08 07:00:00 2023-12-08 07:30:53 Office Visit Sarai Tucker [facility] 1.2.840.114 350.1.13.10 4.2.7.2.686 [id number] [facility] 2023-11-30 00:00:00 2023-11-30 11:39:25 Telephone Jennifer Taylor [facility] 1.2.840.114 350.1.13.10 4.2.7.2.686 [id number] [facility] 2023-11-30 10:00:00 2023-11-30 10:30:00 Office Visit Jennifer Taylor [facility] 1.2.840.114 350.1.13.10 4.2.7.2.686 [id number] [facility] 2023-11-30 10:00:00 2023-11-30 10:00:00 Outpatient R JENNIFER TAYLOR [facility] [id number] [facility] 2023-11-29 00:00:00 2023-11-29 15:55:46 Transition of Care Brooke Nance Antoinette [facility] 1.2.840.114 350.1.13.10 4.2.7.2.686 [id number] [facility] 2023-10-24 00:00:00 2023-11-26 18:22:38 Patient Secure Dylon Martinez [facility] 1.840.114 350.1.13.10 4.2.7.2.686 [id number] [facility] 2023-11-25 10:08:00 2023-11-26 15:17:00 Outpatient X NOHELIA CUEVAS [facility] [id number] [facility] 2023-11-25 10:08:00 2023-11-26 15:17:00 Emergency Pedro Eugene David [facility] 1.0.114 350.1.13.10 4.2.7.2.686 [id number] [facility] 2023-11-25 09:00:00 2023-11-25 09:42:07 Outpatient R NANCY BEST [facility] [id number] [facility] 2023-11-25 09:00:00 2023-11-25 09:42:07 Office Visit [facility] 1..114 350.1.13.10 4.2.7.2.686 [id number] [facility] 2023-11-23 11:57:00 2023-11-23 17:02:00 Emergency X JOSÉ SANTIZO GREGORY [facility] ERT [id number] [facility] 2023-11-23 11:57:00 2023-11-23 17:02:00 Emergency José Santizo [facility] 1.840.114 350.1.13.10 4.2.7.2.686 [id number] [facility] 2023-11-23 11:00:00 2023-11-23 11:30:00 Office Visit Dylon Vargas [facility] 1.2840.114 350.1.13.10 4.2.7.2.686 [id number] [facility] 2023-11-23 11:00:00 2023-11-23 11:00:00 Outpatient R DYLON VARGAS [facility] [id number] [facility] 2023-11-17 00:00:00 2023-11-21 10:28:20 Telephone Luis Bueno [facility] [place] 1.2840.114 350.1.13.10 4.2.7.2.686 [id number] [facility] 2023-11-17 00:00:00 2023-11-17 10:38:38 Telephone Luis Bueno [facility] 1..114 350.1.13.10 4.2.7.2.686 [id number] [facility] 2023-11-11 00:00:00 2023-11-16 10:06:20 Patient Secure Msartie Eugenia Jennifer [facility] 1.0.114 350.1.13.10 4.2.7.2.686 [id number] [facility] 2023-11-09 00:00:00 2023-11-09 08:46:44 Telephone Sar[facility] Tucker [facility] 1.84.114 350.1.13.10 4.2.7.2.686 [id number] [facility] 2023-11-09 08:45:00 2023-11-09 08:45:00 Crop Supervisor Visit Willie Davila Leslie A Lab, Ang - Db [facility] 1.2840.114 350.1.13.10 4.2.7.2.686 [id number] [facility] 2023-11-09 08:45:00 2023-11-09 08:44:29 Outpatient R SARAI TUCKER [facility] [id number] [facility] 2023-11-03 00:00:00 2023-11-08 11:03:56 Patient Secure Jennifer Rose [facility] 1.0.114 350.1.13.10 4.2.7.2.686 [id number] [facility] 2023-10-01 00:00:00 2023-11-05 18:23:05 Patient Secure Msg Doctor Unassigned, [place] Doctor Unassigned, [place] [facility] 1.20.114 350.1.13.10 4.2.7.2.686 [id number] [facility] 2023-10-02 00:00:00 2023-11-05 18:22:21 Patient Secure Msg Laverne Bhardwaj [facility] OFF[facility] BUILD[facility] 1.2840.114 350.1.13.10 4.2.7.2.686 [id number] [facility] 2023-10-31 08:00:00 2023-10-31 09:00:00 Crop Supervisor Visit Therapist, Laurita Respiratory Jennifer Bello [facility] 1.20.114 350.1.13.10 4.2.7.2.686 [id number] [facility] 2023-10-31 08:00:00 2023-10-31 08:00:00 Outpatient R JENNIFER BELLO SARAH [facility] [id number] [facility] 2023-10-27 11:00:00 2023-10-27 12:00:09 Outpatient R JENNIFER BELLO SARAH [facility] [id number] [facility] 2023-10-27 11:00:00 2023-10-27 12:00:09 Office Visit Jennifer Bello [facility] 1.840.114 350.1.13.10 4.2.7.2.686 [id number] [facility] 2023-09-14 00:00:00 2023-10-15 18:15:56 Patient Secure [facility] 1.2840.114 350.1.13.10 4.2.7.2.686 [id number] [facility] 2023-10-13 10:00:00 2023-10-13 10:09:43 Outpatient R LAVERNE BHARDWAJ CRAIG [facility] [id number] [facility] 2023-10-13 10:00:00 2023-10-13 10:09:43 Office Visit Laverne Bhardwaj [facility] BU[facility] 1.2.840.114 350.1.13.10 4.2.7.2.686 [id number] [facility] 2023-10-05 11:30:00 2023-10-05 12:00:00 Office Visit Alan [facility] 1.840.114 350.1.13.10 4.2.7.2.686 [id number] [facility] 2023-10-05 11:30:00 2023-10-05 11:30:00 Outpatient R DYLON VARGSA [facility] [id number] [facility] 2023-10-04 13:30:00 2023-10-04 13:30:00 Outpatient LEYDI NASCIMENTO STRAHIL [facility] [id number] [facility] 2023-08-29 00:00:00 2023-10-01 18:22:54 Patient Secure Luis Billingsley [facility] [place] 1.2840.114 350.1.13.10 4.2.7.2.686 [id number] [facility] 2023-09-30 00:00:00 2023-09-30 08:57:18 Telephone Sarai Tucker [facility] 1.2840.114 350.1.13.10 4.2.7.2.686 [id number] [facility] 2023-09-26 00:00:00 2023-09-27 14:30:18 Telephone [facility] 1.840.114 350.1.13.10 4.2.7.2.686 [id number] [facility] 2023-09-27 10:00:00 2023-09-27 10:15:00 Crop Supervisor Visit [facility] Sleep Lab Leydi Koenig [facility] 1.2840.114 350.1.13.10 4.2.7.2.686 [id number] [facility] 2023-09-27 10:00:00 2023-09-27 10:00:00 Outpatient R LEYDI KOENIG STRAHIL [facility] [id number] [facility] 2023-09-25 16:00:33 2023-09-25 23:59:00 Hospital Encounter Radiology [facility] 1.2840.114 350.1.13.10 4.2.7.2.686 [id number] [facility] 2023-09-25 16:00:01 2023-09-25 23:59:00 Hospital Encounter Radiology [facility] 1.2840.114 350.1.13.10 4.2.7.2.686 [id number] [facility] 2023-09-25 15:59:18 2023-09-25 15:59:18 Hospital Encounter Radiology [facility] 1.2840.114 350.1.13.10 4.2.7.2.686 [id number] [facility] 2023-09-25 15:58:17 2023-09-25 15:58:17 Outpatient R RADIOLOGY [facility] [id number] [facility] 2023-09-25 15:58:17 2023-09-25 15:58:17 Hospital Encounter Radiology [facility] 1.840.114 350.1.13.10 4.2.7.2.686 [id number] [facility] 2023-09-22 13:30:00 2023-09-22 14:32:00 Outpatient R SARAI TUCKER [facility] [id number] [facility] 2023-09-22 13:30:00 2023-09-22 14:32:00 Office Visit Sarai Tucker [facility] 1.0.114 350.1.13.10 4.2.7.2.686 [id number] [facility] 2023-09-16 00:00:00 2023-09-19 09:16:35 Patient Secure Jennifer Rose [facility] 1..114 350.1.13.10 4.2.7.2.686 [id number] [facility] 2023-09-13 07:22:16 2023-09-13 23:59:00 Outpatient R DYLON VARGAS [facility] [id number] [facility] 2023-09-13 07:22:16 2023-09-13 23:59:00 Hospital Encounter Dylon Vargas [facility] 1.0.114 350.1.13.10 4.2.7.2.686 [id number] [facility] 2023-09-07 10:15:00 2023-09-07 10:30:00 Crop Supervisor Visit [facility] 1..114 350.1.13.10 4.2.7.2.686 [id number] [facility] 2023-09-07 09:00:00 2023-09-07 10:00:00 [facility]114 350.1.13.10 4.2.7.2.686 [id number] [facility] 2023-09-07 09:00:00 2023-09-07 09:00:00 Outpatient R NOHELIA DUPONT [facility] [id number] [facility] 2023-08-31 07:43:26 2023-08-31 23:59:00 Hospital Encounter Jennifer Bello [facility] 1..114 350.1.13.10 4.2.7.2.686 [id number] [facility] 2023-08-31 07:15:00 2023-08-31 07:30:00 Crop Supervisor Visit Pob, Adc Lab Main Bello Jennifer [facility] PROFESSIO [facility] 1.114 350.1.13.10 4.2.7.2.686 [id number] [facility] 2023-08-31 07:15:00 2023-08-31 07:15:00 Outpatient R RAI BELLOAH EUGENIA [facility] [id number] [facility] 2023-08-30 10:00:00 2023-08-30 10:00:00 Crop Supervisor Visit Lab, Ang - Db Unknown, [facility] MED[facility] OFFICE BUILD[facility] 1..840.114 350.1.13.10 4.2.7.2.686 [id number] [facility] 2023-08-30 10:00:00 2023-08-30 09:17:34 Outpatient R BELLORAI LockwoodAH EUGENIA, [facility] [id number] [facility] 2023-08-29 00:00:00 2023-08-29 08:15:07 Telephone Luis Bueno [facility] 1.84.114 350.1.13.10 4.2.7.2.686 [id number] [facility] 2023-08-26 09:00:00 2023-08-26 09:46:48 Outpatient R BELLOJENNIFER Lockwood, [facility] [id number] [facility] 2023-08-26 09:00:00 2023-08-26 09:46:48 Crop Supervisor Visit Lab, [facility] - [facility], [facility] MED[facility] OFFICE BUILDING 1.840.114 350.1.13.10 4.2.7.2.686 [id number] [facility] 2023-08-25 10:00:00 2023-08-25 12:40:44 [facility] 1.114 350.1.13.10 4.2.7.2.686 [id number] [facility] 2023-08-25 10:00:00 2023-08-25 12:40:44 Outpatient R BELLOJENNIFER Lockwood, [facility] [id number] [facility] Results Test Description Test Time Test Comments Results Result Co m[facility] Source [facility]55:39* Test Item Value Reference Range Interpretation Comme nts LIPASE (test code = 2971254830) 238 U/L 0-220 H Lab Interpretation (test cod e = 79454-4) Abnormal [facility] Qpja2024-70-78 20:02:45* Test Item Value Reference Range Interpretation Comme nts WBC (test code = 6690-2) 5.34 4.20-10.70 RBC (test code = 789-8) 4.81 4.26-5.52 HGB (test code = 718-7) 15.3 g/dL 12.2-16.4 HCT (test code = 4544-3) 42.9 % 38.4-49.3 MCV (test code = 787-2) 89.2 fL 81.7-95.6 MCH (test code = 785-6) 31.8 pg 26.1-32.7 MCHC (test code = 786-4) 35.7 g/dL 31.2-35.0 H RDW-SD (test code = 44700-4) 41.0 fL 38.5-51.6 RDW-CV (test code = 788-0) 12.5 % 12.1-15.4 PLT (test code = 777-3) 263 150-328 MPV (test code = 89958-1) 10.1 fL 9.8-13.0 NRBC/100 WBC (test code = 3156226607) 0.0 0.0-10.0 NRBC x10^3 (test code = 6911463868) See_Comment [Automated messa ge] The system which generated this result transmitted reference range: 10*3/?L. The reference range was not used to interpret this result as normal/abnormal. GRAN MAT (NEUT) % (test code = 770-8) 53.2 % IMM GRAN % (test code = 3347251874) 0.20 % LYMPH % (test code = 736-9) 31.8 % MONO % (test code = 5905-5) 12.4 % EOS % (test code = 713-8) 1.5 % BASO % (test code = 706-2) 0.9 % GRAN MAT x10^3(ANC) (test code = 7510062651) 2.84 10*3/uL 1.99-6.95 IMM GRAN x10^3 (test code = 7906381964) 0.00-0.06 LYMPH x10^3 (test code = 731-0) 1.70 10*3/uL 1.09-3.23 MONO x10^3 (test code = 742-7) 0.66 10*3/uL 0.36-1.02 EOS x10^3 (test code = 711-2) 0.08 10*3/uL 0.06-0.53 BASO x10^3 (test code = 704-7) 0.05 10*3/uL 0.01-0.09 Lab Interpretation (test code = 25987-0) [facility] [id number] 17:33:07* Test Item Value Reference Range Interpretation Comme nts MEASLES IgG (test code = 3629214559) Negative Negative CHARLIE (test code = CHARLIE) Positive - Indicat es that the patient was exposed to Measles through infection or vaccination.Negative - Indicates patient could be susceptible to Measles infection.Equivocal - A second sample should be sent. [facility]2023-11-26 01:06:25* Test Item Value Reference Range Interpretation Comme nts Height (test code = 2321731527) 67 in Weight (test code = 7409271750) 202 lbs Systolic BP (test code = 0224999451) 126 mmHg Diastolic BP (test code = 2699812933) 91 mmHg Heart Rate (test code = 8483095652) 63 bpm LV GLS Endo Peak A2C () (test code = 3279944084) -29.60 % LV GLS Endo Peak A3C () (test code = 2331504252) -25.50 % LV GLS Endo Peak A4C () (test code = 2836737733) -21.40 % LV GLS Endo Peak Avg () (test code = 8265113037) -25.50 % BSA (test code = 8344401743) 2.03 m2 Ao root diam (test code = 5002155040) 3.20 cm Aortic root (test code = 8382237327) 3.2 cm Ao root annulus (test code = 6694571421) 3.2 cm LVOT diameter (test code = 6229822783) 2.25 cm LVOT area (test code = 1486205905) 4.00 cm2 LA size (test code = 0629743229) 3.7 cm LVIDD (test code = 3250573739) 4.80 cm Left Ventricular End Diastolic Volume by Teichholz Method (test code = 5734089) 108.8 mL IVS (test code = 5397889902) 1.02 cm Interventricular Septum Diastolic Thickness by 2D (test code = 1752626) 1.02 cm LVPWD (test code = 5877972435) 1.04 cm PW (test code = 9421464760) 1.04 cm 0.6-1.1 EF(Teich) (test code = 4099469636) 65.20 % LVIDS (test code = 7303049162) 3.10 cm Left Ventricular End Systolic Volume by Teichholz Method (test code = 9179427) 37.9 mL FS (test code = 8949323865) 36 % EF - 2D (test code = 59745686) 65.20 % E wave decelartion time (test code = 7796676169) 0.15 s MV stenosis pressure 1/2 time (test code = 4352344436) 46.2 ms MV Peak A Jorge (test code = 6587188960) 59.2 cm/s MV Peak E Jorge (test code = 4591119039) 97.5 cm/s E/A ratio (test code = 4744974109) 1.65 ratio MV E/e' septal (test code = 2010548056) 13.5 cm/s Tapse (test code = 4946608759) 2.44 cm MV Prop V (test code = 2302330219) 108.70 cm/s LAV(MOD-sp4) (test code = 8168352328) 45.00 mL LVOT stroke volume (test code = 4555836904) 71.50 cm3 LVOT peak jorge (test code = 4731462145) 99.3 cm/s LVOT mn grad (test code = 8461144162) 1.7 mmHg AV LVOT peak gradient (test code = 2231639256) 3.9 mmHg LVOT peak VTI (test code = 6134643689) 17.9 cm LV V1 mean (test code = 9759450265) 61.30 cm/s Aortic valve mean velocity (test code = 9688042814) 89.4 cm/s Ao peak jorge (test code = 3688804568) 126.6 cm/s Ao VTI (test code = 7646012829) 22.4 cm AV area by cont VTI (test code = 3066032057) 3.2 cm2 AV area peak jorge (test code = 7383112352) 3.1 cm2 Ao max PG (test code = 9872427763) 6.40 mm[Hg] AV peak gradient (test code = 3046103123) 6.4 mmHg AV valve area (test code = 2532075209) 3.20 cm2 AV mean gradient (test code = 8670252815) 3.4 mmHg GLS (test code = 5396778124) -26 % Radiology Study observation (narrative) (test code = 42689-7) CHARLIE (test code = CHARLIE) ?Left?Ventricle: Left ventricle size is normal. Normal wall thickness. Normal wall motion. Normal systolic function with a visually estimated EF of 60 - 65%. Global longitudinal strain is normal with a value of -26%. Normal diastolic function. ?Right?Ventricle: Right ventricle size is normal. Normal systolic function. ?Tricuspid?Valve: Trace transvalvular regurgitation. Insufficient tricuspid regurgitation jet to estimate RVSP. IVC not well seen. Left VentricleLeft ventricle size is normal. Normal wall thickness. Normal wall motion. Normal systolic function with a visually estimated EF of 60 - 65%. Global longitudinal strain is normal with a value of -26%. Normal diastolic function.Right VentricleRight ventricle size is normal. Normal systolic function.Left AtriumLeft atrium size is normal.Right AtriumRight atrium size is normal.IVC/SVCIVC was not well visualized.Mitral ValveMitral valve structure is grossly normal. Trace transvalvular regurgitation.Tricusp id ValveTricuspid valve structure is grossly normal. Trace transvalvular regurgitation. Insufficient tricuspid regurgitation jet to estimate RVSP. IVC not well seen.Aortic ValveTricuspid.Pulmon ic ValveNot well visualized.Ascending AortaNormal sized aortic root.PericardiumNo pericardial effusion.Study DetailsStudy quality experienced technical difficulty. A complete echocardiogram was performed using 2D, color flow Doppler, spectral Doppler and strain. [facility] I - Serial Q3H x2 from initial occurrence (at 0Hr, 3rd Hr and 6th Hr)2023-11-25 21:11:51* Test Item Value Reference Range Interpretation Comme nts TROPONIN I (test code = 8465197392) 0.002 ng/mL <=0.034 CHARLIE (test code = CHARLIE) Reference (Normal) Range (defined by the 99th percentile reference limit): <= 0.034 ng/mL Note: Cardiac troponin begins to rise 3-4 hours after the onset of ischemia. Repeat in 4-6 hours if the sample was drawn within 3-4 hours of the onset of the symptom and found normal. Diagnosis of myocardial injury is made with acute changes in cTn concentrations with at least one serial sample above the 99th percentile upper reference limit (URL), taken together with the patient's clinical presentation. Biotin has been reported to cause a negative bias, interpret results relative to patient's use of biotin. Lab Interpretation (test code = 62218-4) Normal [facility] [id number] 20:59:40* Test Item Value Reference Range Interpretation Comme nts TROPONIN I (test code = 7276760680) 0.002 ng/mL <=0.034 CHARLIE (test code = CHARLIE) Reference (Normal) Range (defined by the 99th percentile reference limit): <= 0.034 ng/mL Note: Cardiac troponin begins to rise 3-4 hours after the onset of ischemia. Repeat in 4-6 hours if the sample was drawn within 3-4 hours of the onset of the symptom and found normal. Diagnosis of myocardial injury is made with acute changes in cTn concentrations with at least one serial sample above the 99th percentile upper reference limit (URL), taken together with the patient's clinical presentation. Biotin has been reported to cause a negative bias, interpret results relative to patient's use of biotin. Lab Interpretation (test code = 98719-9) Normal [facility] 1 [id number] 18:57:35XR CHEST 1 VW Referred by: JOSÉ SANTIZO COMPARISON: 08/31/2023 CLINICAL INDICATIONS: chest pain FINDINGS: ? The lungs are without infiltrate or abnormal opacity. The pleural space isunremarkable. The thoracic aorta is minimally tortuous with calcification in the arch.The heart and mediastinum are unremarkable. Minimal degenerative changes are present in the thoracic spine.[facility]TROP[facility] [id number] 18:21:25* Test Item Value Reference Range Interpretation Comme nts TROPONIN I (test code = 9047000731) 0.003 ng/mL <=0.034 CHARLIE (test code = CHARLIE) Reference (Normal) Range (defined by the 99th percentile reference limit): <= 0.034 ng/mL Note: Cardiac troponin begins to rise 3-4 hours after the onset of ischemia. Repeat in 4-6 hours if the sample was drawn within 3-4 hours of the onset of the symptom and found normal. Diagnosis of myocardial injury is made with acute changes in cTn concentrations with at least one serial sample above the 99th percentile upper reference limit (URL), taken together with the patient's clinical presentation. Biotin has been reported to cause a negative bias, interpret results relative to patient's use of biotin. Lab Interpretation (test code = 26413-7) Normal [facility]-TERMINAL [id number] 18:21:25* Test Item Value Reference Range Interpretation Comme nts NT-proBNP (test code = 62198-6) 40 pg/mL <=125 Lab Interpretation (test cod e = 45611-5) Normal [facility]COMP. METABOLIC PANEL (66872)2023-11-23 18:10:39* Test Item Value Reference Range Interpretation Comme nts NA (test code = 8359582000) 137 mmol/L 135-145 K (test code = 3334705857) 4.2 mmol/L 3.5-5.0 CL (test code = 2110553190) 103 mmol/L 98-108 CO2 TOTAL (test code = 5721554812) 26 mmol/L 23-31 AGAP (test code = 5079260157) 8 2-16 BUN (test code = 7267110860) 5 mg/dL 7-23 L GLUCOSE (test code = 2353997016) 99 mg/dL 70-110 CREATININE (test code = 2160-0) 0.89 mg/dL 0.60-1.25 TOTAL BILI (test code = 0094828112) 1.0 mg/dL 0.1-1.1 CALCIUM (test code = 6858739823) 9.2 mg/dL 8.6-10.6 T PROTEIN (test code = 7579895375) 6.0 g/dL 6.3-8.2 L ALBUMIN (test code = 6385205040) 4.3 g/dL 3.5-5.0 ALK PHOS (test code = 1640463707) 41 U/L 34-122 ALTv (test code = 1742-6) 37 U/L 5-50 AST(SGOT) (test code = 7525708125) 32 U/L 13-40 eGFR (test code = 37784-2) 107.7 mL/min/1.73m2 CKD-EPI eGFR (2020). Assuming creatinine has been stable day-to-day for at least three months, the eGFR indicates Category G1 (>= 90 mL/min/1.73 m2) Lab Interpretation (test code = 92883-8) Abnormal [facility] WITH [id number] 17:51:14* Test Item Value Reference Range Interpretation Comme nts WBC (test code = 6690-2) 6.19 4.20-10.70 RBC (test code = 789-8) 4.80 4.26-5.52 HGB (test code = 718-7) 15.2 g/dL 12.2-16.4 HCT (test code = 4544-3) 42.6 % 38.4-49.3 MCV (test code = 787-2) 88.8 fL 81.7-95.6 MCH (test code = 785-6) 31.7 pg 26.1-32.7 MCHC (test code = 786-4) 35.7 g/dL 31.2-35.0 H RDW-SD (test code = 08675-4) 41.2 fL 38.5-51.6 RDW-CV (test code = 788-0) 12.6 % 12.1-15.4 PLT (test code = 777-3) 257 150-328 MPV (test code = 79825-0) 9.8 fL 9.8-13.0 NRBC/100 WBC (test code = 5637899941) 0.0 0.0-10.0 NRBC x10^3 (test code = 1677013872) See_Comment [Automated [employer] edPULSE] The system which generated this result transmitted reference range: 10*3/?L. The reference range was not used to interpret this result as normal/abnormal. GRAN MAT (NEUT) % (test code = 770-8) 57.6 % IMM GRAN % (test code = 3184356322) 0.20 % LYMPH % (test code = 736-9) 30.5 % MONO % (test code = 5905-5) 9.7 % EOS % (test code = 713-8) 1.5 % BASO % (test code = 706-2) 0.5 % GRAN MAT x10^3(ANC) (test code = 3332886942) 3.57 10*3/uL 1.99-6.95 IMM GRAN x10^3 (test code = 8960029646) 0.00-0.06 LYMPH x10^3 (test code = 731-0) 1.89 10*3/uL 1.09-3.23 MONO x10^3 (test code = 742-7) 0.60 10*3/uL 0.36-1.02 EOS x10^3 (test code = 711-2) 0.09 10*3/uL 0.06-0.53 BASO x10^3 (test code = 704-7) 0.03 10*3/uL 0.01-0.09 Lab Interpretation (test code = 10745-8) [facility]normal [facility] [id number] 16:50:57 PROCEDURE: CT CHEST WITH CONTRAST - CHEST PROTOCOL CLINICAL INDICATION: 43 years-old Male with Dyspnea, chronic, unclearetiology . Comparison: None TECHNIQUE: Volumetric images of the chest were acquired (from lung apicesto bases) following administration of iodine contrast. Images werereconstructed at 2.5 mm slice thickness. MIP axial images, coronal andsagittal reformats were also submitted forinterpretation. FINDINGS: Devices: None LUNGS AND PLEURA: The lungs are well-expanded and clear. Nofocal opacitiesare identified. Multiple oval solid nodules along the right major fissurelikely present perifissural lymph nodes. Additional 3 mm subpleural nodulein the lateral left lower lobe (series 9 image 131 )could represent anintrapulmonary lymph node. No suspicious nodules. No pleural abnormalitydetected. LYMPH NODES: Scattered small lymph nodes in both sides of the mediastinumand hilar regions. No evidence of intrathoracic lymphadenopathy. MEDIASTINUM AND LOWER NECK: No central airway le sions are detected. Theesophagus is within normal limits. The included thyroid gland appearsnormal.HEART AND GREAT VESSELS: The heart is normal in size. No pericardialabnormalities are identified. The RV to LV is normal. ? The thoracic aorta is normal in caliber, with ?mild atherosclerotic plaque.The pulmonary trunk is normal in caliber. VISUALIZED UPPER ABDOMEN: Prior cholecystectomy. OSSEOUS STRUCTURES AND SOFT TISSUES: No focal osseous lesions are detected.The soft tissues appear normal.[facility] 2023-08-31 13:10:03EXAM: XR CHEST 2 VW HISTORY: 43 years-old Male; Provided indication: cough . TECHNIQUE: Single frontal view of the chest. COMPARISON: None FINDINGS: The lungs are well-expanded. No focal consolidation or pleural abnormalityis visualized. The cardiomediastinal silhouette is normal in size accountingfortechnique. No focal osseous lesions or acute osseous findings are detected[facility] [id number] 20:26:17* Test Item Value Reference Range Interpretation Comme [facility] HIV Semi-quantitative (test code = 77011-1) 0.08 Negative CHARLIE (test code = CHARLIE) Non-reactive for HIV-1 antigen and HIV-1/HIV-2 antibodies. ?No laboratory evidence of HIV infection. ?Repeat in 2-4 weeks if acute HIV infection is suspected. [facility] 1/2 AG-AB WITH [id number] 20:26:17* Test Item Value Reference Range Interpretation Comme [facility] HIV Semi-quantitative (test code = 98244-3) 0.08 Negative CHARLIE (test code = CHARLIE) Non-reactive for HIV-1 antigen and HIV-1/HIV-2 antibodies. ?No laboratory evidence of HIV infection. ?Repeat in 2-4 weeks if acute HIV infection is suspected. [facility] with [id number] 19:32:10* Test Item Value Reference Range Interpretation Comme nts WBC (test code = 6690-2) 6.43 4.20-10.70 RBC (test code = 789-8) 4.77 4.26-5.52 HGB (test code = 718-7) 15.8 g/dL 12.2-16.4 HCT (test code = 4544-3) 44.1 % 38.4-49.3 MCV (test code = 787-2) 92.5 fL 81.7-95.6 MCH (test code = 785-6) 33.1 pg 26.1-32.7 H MCHC (test code = 786-4) 35.8 g/dL 31.2-35.0 H RDW-SD (test code = 19421-1) 40.7 fL 38.5-51.6 RDW-CV (test code = 788-0) 12.1 % 12.1-15.4 PLT (test code = 777-3) 237 150-328 MPV (test code = 40852-0) 10.3 fL 9.8-13.0 NRBC/100 WBC (test code = 5386184358) 0.0 0.0-10.0 NRBC x10^3 (test code = 5269714989) See_Comment [Automated messa ge] The system which generated this result transmitted reference range: 10*3/?L. The reference range was not used to interpret this result as normal/abnormal. GRAN MAT (NEUT) % (test code = 770-8) 63.0 % IMM GRAN % (test code = 2057836559) 0.30 % LYMPH % (test code = 736-9) 28.0 % MONO % (test code = 5905-5) 7.3 % EOS % (test code = 713-8) 0.9 % BASO % (test code = 706-2) 0.5 % GRAN MAT x10^3(ANC) (test code = 3171140122) 4.05 10*3/uL 1.99-6.95 IMM GRAN x10^3 (test code = 0732094148) 0.00-0.06 LYMPH x10^3 (test code = 731-0) 1.80 10*3/uL 1.09-3.23 MONO x10^3 (test code = 742-7) 0.47 10*3/uL 0.36-1.02 EOS x10^3 (test code = 711-2) 0.06 10*3/uL 0.06-0.53 BASO x10^3 (test code = 704-7) 0.03 10*3/uL 0.01-0.09 Lab Interpretation (test code = 88945-3) Abnormal [facility] with [id number] 19:32:10* Test Item Value Reference Range Interpretation Comme nts WBC (test code = 6690-2) 6.43 4.20-10.70 RBC (test code = 789-8) 4.77 4.26-5.52 HGB (test code = 718-7) 15.8 g/dL 12.2-16.4 HCT (test code = 4544-3) 44.1 % 38.4-49.3 MCV (test code = 787-2) 92.5 fL 81.7-95.6 MCH (test code = 785-6) 33.1 pg 26.1-32.7 H MCHC (test code = 786-4) 35.8 g/dL 31.2-35.0 H RDW-SD (test code = 38338-0) 40.7 fL 38.5-51.6 RDW-CV (test code = 788-0) 12.1 % 12.1-15.4 PLT (test code = 777-3) 237 150-328 MPV (test code = 47899-6) 10.3 fL 9.8-13.0 NRBC/100 WBC (test code = 6717240104) 0.0 0.0-10.0 NRBC x10^3 (test code = 0855634153) See_Comment [Automated messa ge] The system which generated this result transmitted reference range: 10*3/?L. The reference range was not used to interpret this result as normal/abnormal. GRAN MAT (NEUT) % (test code = 770-8) 63.0 % IMM GRAN % (test code = 6722389904) 0.30 % LYMPH % (test code = 736-9) 28.0 % MONO % (test code = 5905-5) 7.3 % EOS % (test code = 713-8) 0.9 % BASO % (test code = 706-2) 0.5 % GRAN MAT x10^3(ANC) (test code = 7745614370) 4.05 10*3/uL 1.99-6.95 IMM GRAN x10^3 (test code = 1581551612) 0.00-0.06 LYMPH x10^3 (test code = 731-0) 1.80 10*3/uL 1.09-3.23 MONO x10^3 (test code = 742-7) 0.47 10*3/uL 0.36-1.02 EOS x10^3 (test code = 711-2) 0.06 10*3/uL 0.06-0.53 BASO x10^3 (test code = 704-7) 0.03 10*3/uL 0.01-0.09 Lab Interpretation (test code = 00869-4) Abnormal [facility]- [facility]/[id number] 20:15:41 Ordered by an unspecified provider.[facility]- RE[facility]/[id number] 20:15:27Ordered by an unspecified provider.[facility] Consult Notes Date/Time Note Provider Source 2023-11-25 23:08:16 Associated Order(s): CONSULT CARDIOLOGY [facility] Cardiology Consult Note Patient: Sen Hdz Date of : 1980 Date of service: 11/25/2023 Primary Care Physician: Sarai Tucker CHIEF COMPLAINT: Chief Complaint Patient presents with Chest Pain HISTORY OF PRESENT ILLNESS: Sen Hdz is a 43 year old male presented to the ER for evaluation for chest pain. History from patient/family member at bedside. Pertinent cardiac related history reviewed from chart PMHx of asthma, HTN (propranolol LA 160 mg qd), former smoker and hypogammaglobulinemia Has been having chest pain over the past 6 weeks, usually at night. Went to the ER on 11/23/2023 where EKG was done, showed inferior Q waves and anterior ST depression. Troponin was negative twice. Discharged home. Presented to the cardiology office today 11/25/2023, reported having chest pain while in the office, Retrosternal pressure. Hence sent to the ER for further evaluation management. Currently chest pain-free. Not very active at baseline. No chest pain at rest. No PND or orthopnea. No pedal edema. No exertional palpitations or palpitations at rest. No syncopal attacks. PAST MEDICAL HISTORY Past Medical History: Diagnosis Date Essential (primary) hypertension Hypogammaglobulinemia sees Dr. Bello Mild intermittent asthma, uncomplicated JAMEY (obstructive sleep apnea) 09/30/2023 Selective IgM deficiency Past Surgical History: Procedure Laterality Date LAPAROSCOPIC CHOLECYSTECTOMY 2013 OPEN APPENDECTOMY Family History Problem Relation Age of Onset Asthma Mother No Significant Medical Problems Father SOCIAL HISTORY Social History Socioeconomic History Marital status: Spouse name: Mary Hdz Number of children: 3 Years of education: 14 Highest education level: Associate degree: academic program Tobacco Use Smoking status: Former Current packs/day: 0.00 Types: Cigarettes Quit date: 2013 Years since quittin.6 Passive exposure: Past Smokeless tobacco: Current Substance and Sexual Activity Alcohol use: Not Currently Drug use: Never Social Determinants of Health Financial Resource Strain: Low Risk (09/22/2023) Overall Financial Resource Strain (CARDIA) Difficulty of Paying Living Expenses: Not hard at all Food Insecurity: No Food Insecurity (09/22/2023) Hunger Vital Sign Worried About Running Out of Food in the Last Year: Never true Ran Out of Food in the Last Year: Never true Transportation Needs: No Transportation Needs (09/22/2023) PRAPARE - Transportation Lack of Transportation (Medical): No Lack of Transportation (Non-Medical): No Physical Activity: Inactive (09/22/2023) Exercise Vital Sign Days of Exercise per Week: 0 days Minutes of Exercise per Session: 0 min Stress: No Stress Concern Present (09/22/2023) [employer] - Occupational Stress Questionnaire Feeling of Stress : Not at all Social Connections: Socially Isolated (09/22/2023) Social Connection and Isolation Panel [NHANES] Frequency of Communication with Friends and Family: Once a week Frequency of Social Gatherings with Friends and Family: Never Attends Rastafari Services: Never Active Member of Clubs or Organizations: No Attends Club or Organization Meetings: Never Marital Status: Housing Stability: Low Risk (09/22/2023) Housing Stability Vital Sign Unable to Pay for Housing in the Last Year: No Number of Places Lived in the Last Year: 1 Unstable Housing in the Last Year: No ALLERGIES Allergies Allergen Reactions Nsaids (Non-Steroidal Anti-Inflammatory Drug) Swelling Antipyrine Swelling and Anaphylaxis Bromfenac Unknown - See comments Gabapentin Other - See comments Causes stuttering Ibuprofen Other - See comments and Itching MEDICATIONS Current Discharge Medication List STOP taking these medications cefpodoxime 200 mg tablet Comments: Reason for Stopping: nitroglycerin 0.4 mg sublingual tablet Comments: Reason for Stopping: propranolol LA 160 mg 24 hr capsule Comments: Reason for Stopping: albuterol 1.25 mg/3 mL nebulizer solution Comments: Reason for Stopping: albuterol sulfate 90 mcg/actuation AePB Comments: Reason for Stopping: xbwmmmqeqh-skibhrof-qgysrqhvcw (BREZTRI AEROSPHERE) 160-9-4.8 mcg/actuation HFAA Comments: Reason for Stopping: Current Facility-Administered Medications: acetaminophen (TYLENOL) tablet 650 mg, 650 mg, Oral, Q6HPRN, Nohelia Cuevas DO [START ON 11/26/2023] carvediloL (COREG) tablet 12.5 mg, 12.5 mg, Oral, BID MEALS, Lorena Elizabeth MD enoxaparin (LOVENOX) injection 40 mg, 40 mg, Subcutaneous, DAILY, Nohelia Cuevas DO, 40 mg at 11/25/231657 losartan (COZAAR) tablet 25 mg, 25 mg, Oral, BID, Lorena Elizabeth MD, 25 mg at 11/25/231943 ondansetron (ZOFRAN (PF)) injection 4 mg, 4 mg, Slow IV Push, Q6HPRN, Nohelia Cuevas DO REVIEW OF SYSTEMS: Comprehensive 10-system review was conducted and were negative except for what's noted in the HPI. The following systems were reviewed: Constitutional, cardiovascular, respiratory, gastrointestinal, genitourinary, musculoskeletal, neurologic, psychiatric, endocrinological, and hematological. PHYSICAL EXAMINATION: Vitals: 11/25/23 1400 11/25/23 1500 11/25/23 1600 11/25/231944 BP: 128/87 124/88 137/89 BP Location: Left arm Patient Position: Sitting Pulse: 66 58 80 Resp: 20 18 22 Temp: 36.6 ?C (97.8 ?F) 36 ?C (96.8 ?F) TempSrc: Tympanic Tympanic SpO2: 98% 98% 99% Weight: 90 kg (198 lb 6.6 oz) Height: 1.702 m (5' 7") General: no apparent distress HEENT: normocephalic atraumatic Neck: supple, no lymphadenopathy, no bruits, no JVD Lungs: clear to auscultation bilaterally. No wheezes or rhonchi. No increased work of breathing. Cardio: Regular rate and rhythm, S1&S2 normal, no murmurs, rubs or gallops Abdomen: soft; non-tender; non-distended; normoactive bowel sounds. : not examined Rectal: not examined Extremities: no clubbing, cyanosis, or edema. Skin: no rashes, no visible lesions. Neuro: no gross focal deficits LABS - Reviewed pertinent labs as below: CBC BMP PT/INR WBC (10*3/?L) Date Value 11/25/2023 6.90 NA (mmol/L) Date Value 11/25/2023 140 No results found for: "PT" PLT (10*3/?L) Date Value 11/25/2023 275 K (mmol/L) Date Value 11/25/2023 3.6 No results found for: "PTINR" HGB (g/dL) Date Value 11/25/2023 16.0 BUN (mg/dL) Date Value 11/25/2023 7 HCT (%) Date Value 11/25/2023 45.4 CREATININE (mg/dL) Date Value 11/25/2023 0.92 LIPID PROFILE GLUCOSE (mg/dL) Date Value 11/25/2023 95 CHOL (mg/dL) Date Value 11/09/2023 151 TSH LDL CHOL (mg/dL) Date Value 11/09/2023 70 TSH (mIU/L) Date Value 11/09/2023 4.51 CARDIAC ENZYMES HDL (mg/dL) Date Value 11/09/2023 41 No results found for: "CK" TRIG (mg/dL) Date Value 11/09/2023 202 (H) LFTs No results found for: "CKMB" AST(SGOT) (U/L) Date Value 11/25/2023 33 TROPONIN I (ng/mL) Date Value 11/25/2023 0.002 ALTv (U/L) Date Value 11/25/2023 42 No results found for: "BNP" LDL CHOL (mg/dL) Date Value 11/09/2023 70 Recent Labs 11/25/23 1508 TROPNI 0.002 Recent Labs 11/09/23 0853 TRIG 202* LDL CHOL (mg/dL) Date Value 11/09/2023 70 NT-proBNP (pg/mL) Date Value 11/25/2023 72 ASSESSMENT/PLAN Principal Problem: Chest pain, unspecified type Active Problems: Hypogammaglobulinemia Asthma Uncontrolled hypertension Essential hypertension JAMEY (obstructive sleep apnea) Abnormal ECG Atypical chest pain by history: EKG dated 11/23/2023 strips reviewed shows sinus rhythm, inferior Q waves noted with T wave inversion across the anterior leads. EKG dated 11/25/2023 strips reviewed shows sinus rhythm, narrow QRS complex, inferior Q waves, T wave inversion across the inferolateral leads. Serial troponins x 3 have been negative so far. NT-proBNP normal CT chest dated 09/13/2023 reviewed shows no significant coronary calcification. Echocardiogram dated 11/25/2023 images reviewed shows preserved LV systolic function, normal RV size and function, no significant valve normalities noted. Continue telemetry monitoring Plan for outpatient stress test. Unable to exercise due to muscle wasting/tendinitis secondary to levofloxacin. Consider dobutamine stress echocardiogram versus Lexiscan NM stress test. Recent Labs 11/25/23 1229 11/25/23 1508 TROPNI 0.002 0.002 NT-proBNP (pg/mL) Date Value 11/25/2023 72 Abnormal EKG: Likely in the setting of underlying uncontrolled hypertension. Echocardiogram within acceptable limits. If unremarkable, may consider outpatient cardiac MRI/cardiac CT for further assessment. Hypertension: Not optimally controlled. Reports diastolic numbers consistently more than 90s Currently on Inderal LA 160 mg daily. Recommended changing Inderal LA to carvedilol 12.5 twice daily and uptitrate based upon the blood pressure response Recommend starting losartan 25 twice daily. In the past patient was noted to be on amlodipine and [facility]. Recommended goal blood pressure less than 130/80. Last Two A1C Results ([facility]/LC, POCT, QUEST) Recent Labs 11/09/23 0853 HGBA1C 5.1 LDL CHOL (mg/dL) Date Value 11/09/2023 70 Rx plan discussed with the patient/staff member at bedside. My diagnostic impression and treatment plans were discussed at length with the patient and family member present. All side effects as well as drug-drug interactions and risks discussed at length. Ample opportunity was offered and encouraged to ask questions during this visit and patient appreciated the answers given by me and verbzalised statisfcation in the answers given. Thank you for allowing us to participate in the care of Sen Hdz. If you have any questions or concerns please feel free to call our office at [phone]. I would be happy to be of further assistance for Sen Hdz wellbeing. Voice recognition software has been used to create portions of this document. An attempt to proofread has been made to minimize errors. Please do not hesitate to call with any questions. Lorena Elizabeth MD 11/25/2023 7:08 PM Bright Cutter, Division of Cardiology [facility] - [facility] History and Physical Notes Date/Time Note Provider Source 2023-11-25 20:27:15 [facility] Hospitalist Admission H&P Date of Service: 11/25/2023 CHIEF COMPLAINT: Chest pain. History of Present Illness: Sen Hdz is a 43 year old Gentleman who has a history of asthma, hypertension, and hypogammaglobulinemia. Patient also used to be a smoker. He states he has been having chest pain on and off for the last month. He has gone to the emergency room for further evaluation and serial troponins were unremarkable. 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 Patient followed up with his casing mixer earlier today. He was still having some chest discomfort. EKG changes were significant for inferior Q waves and anterior ST depression. Patient was sent to the hospital for further evaluation. In the emergency room, patient had lab work up performed and his troponins have been negative. Patient had an echocardiogram performed with normal ejection fraction and no significant valvular abnormalities noted. Patient will be admitted for observation. Will await cardiology recommendation at this time. Patient is trying to get back to work on November 28. Further cardiac workup prior to cardiac clearance to go back to work to be determined by cardiology. PAST MEDICAL HISTORY Past Medical History: Diagnosis Date Essential (primary) hypertension Hypogammaglobulinemia sees Dr. Bello Mild intermittent asthma, uncomplicated JAMEY (obstructive sleep apnea) 09/30/2023 Selective IgM deficiency PAST SURGICAL HISTORY Past Surgical History: Procedure Laterality Date LAPAROSCOPIC CHOLECYSTECTOMY 2013 OPEN APPENDECTOMY ALLERGIES Allergies Allergen Reactions Nsaids (Non-Steroidal Anti-Inflammatory Drug) Swelling Antipyrine Swelling and Anaphylaxis Bromfenac Unknown - See comments Gabapentin Other - See comments Causes stuttering Ibuprofen Other - See comments and Itching MEDICATIONS Current home medication list reviewed: Current Discharge Medication List STOP taking these medications cefpodoxime 200 mg tablet Comments: Reason for Stopping: nitroglycerin 0.4 mg sublingual tablet Comments: Reason for Stopping: propranolol LA 160 mg 24 hr capsule Comments: Reason for Stopping: albuterol 1.25 mg/3 mL nebulizer solution Comments: Reason for Stopping: albuterol sulfate 90 mcg/actuation AePB Comments: Reason for Stopping: dclezunyvr-fvjngwtz-gaozlbloil (BREZTRI AEROSPHERE) 160-9-4.8 mcg/actuation HFAA Comments: Reason for Stopping: FAMILY HISTORY Family History Problem Relation Age of Onset Asthma Mother No Significant Medical Problems Father SOCIAL HISTORY Social History Socioeconomic History Marital status: Spouse name: Mary Hdz Number of children: 3 Years of education: 14 Highest education level: Associate degree: academic program Tobacco Use Smoking status: Former Current packs/day: 0.00 Types: Cigarettes Quit date: 2013 Years since quittin.6 Passive exposure: Past Smokeless tobacco: Current Substance and Sexual Activity Alcohol use: Not Currently Drug use: Never Social Determinants of Health Financial Resource Strain: Low Risk (09/22/2023) Overall Financial Resource Strain (CARDIA) Difficulty of Paying Living Expenses: Not hard at all Food Insecurity: No Food Insecurity (09/22/2023) Hunger Vital Sign Worried About Running Out of Food in the Last Year: Never true Ran Out of Food in the Last Year: Never true Transportation Needs: No Transportation Needs (09/22/2023) PRAPARE - Transportation Lack of Transportation (Medical): No Lack of Transportation (Non-Medical): No Physical Activity: Inactive (09/22/2023) Exercise Vital Sign Days of Exercise per Week: 0 days Minutes of Exercise per Session: 0 min Stress: No Stress Concern Present (09/22/2023) [employer] [place] - Occupational Stress Questionnaire Feeling of Stress : Not at all Social Connections: Socially Isolated (09/22/2023) Social Connection and Isolation Panel [NHANES] Frequency of Communication with Friends and Family: Once a week Frequency of Social Gatherings with Friends and Family: Never Attends Rastafari Services: Never Active Member of Clubs or Organizations: No Attends Club or Organization Meetings: Never Marital Status: Housing Stability: Low Risk (09/22/2023) Housing Stability Vital Sign Unable to Pay for Housing in the Last Year: No Number of Places Lived in the Last Year: 1 Unstable Housing in the Last Year: No REVIEW OF SYSTEMS 10 systems negative except per HPI PHYSICAL EXAMINATION BP 124/88 | Pulse 58 | Temp 36.6 ?C (97.8 ?F) (Tympanic) | Resp 18 | Ht 1.702 m (5' 7") | Wt 90 kg (198 lb 6.6 oz) | SpO2 98% | BMI 31.08 kg/m? General: No acute distress HEENT: Normal oral mucosa, anicteric sclerae, NCAT Cardiovascular: RRR Lungs: Symmetric expansion, clear bilaterally Abdomen: Soft, NTND Musculoskeletal: No synovitis, normal muscle mass Genitourinary: Deferred Skin: No rash, no skin lesions Extremities: No clubbing, no cyanosis, no lower extremity edema Neuro: AAOx3, no focal deficits Psych: Normal affect LABS - reviewed pertinent labs as below: CBC BMP PT/INR WBC (10*3/?L) Date Value 11/25/2023 6.90 NA (mmol/L) Date Value 11/25/2023 140 No results found for: "PT" RBC (10*6/?L) Date Value 11/25/2023 4.95 K (mmol/L) Date Value 11/25/2023 3.6 No results found for: "PTINR" PLT (10*3/?L) Date Value 11/25/2023 275 CALCIUM (mg/dL) Date Value 11/25/2023 9.0 HGB (g/dL) Date Value 11/25/2023 16.0 CL (mmol/L) Date Value 11/25/2023 102 aPTT HCT (%) Date Value 11/25/2023 45.4 BUN (mg/dL) Date Value 11/25/2023 7 No results found for: "APTTPAT" CREATININE (mg/dL) Date Value 11/25/2023 0.92 IMAGING - reviewed, pertinent results as below: Hospital Encounter on 11/25/23 XR CHEST 1 VW Narrative EXAM: XR CHEST 1 VW COMPARISON: Chest radiograph dated 11/23/2023 HISTORY: 6 week history of chest pain. FINDINGS: Lungs: The lungs are adequately expanded. No focal opacities or pleural abnormality. Heart/Mediastinum: The cardiac silhouette appears normal accounting for technique and degree of inspiration. Bones and soft tissues: No acute osseous abnormality is visualized. Impression No radiographic evidence of acute cardiopulmonary process. Preliminary Report Dictated by Resident: [place] ASSESSMENT: 1. Chest pain rule out acute coronary syndrome 2. History of hypogammaglobulinemia 3. History of hypertension 4. History of mild intermittent asthma 5. Obstructive sleep apnea PLAN: 1. Chest pain rule out acute coronary syndrome; serial troponins and EKG. Initial troponins have been negative. EKG with Q waves in ST depressions. Echocardiogram reviewed. Further testing as an outpatient per cardiology recommendation. 2. History of hypertension; continue with antihypertensives 3. History of asthma; stable 4. History of obstructive sleep apnea; patient will need arrangement for CPAP as an outpatient DVT prophylaxis: enoxaparin Stress ulcer prophylaxis: pantoprazole Code status: FULL Advanced Care Planning (Z71.89) Above assessment and plan discussed at length with patient, patient expressed full understanding. Questions and concerned addressed. Surrogate decision maker: NO Level of care expected after discharge: HOME Time spent: 3 minutes discussing the advanced care plan Smoking Cessation: (Z71.6) Tobacco user?: NO Patient will require observation [place] [employer]MER was verified during stay Liat Gaspar MD IM-INTERNAL MEDICINE STAFF [facility] Notes Date/Time Note Provider Source 2024-05-16 10:15:00 Images from the original note were not included. Venipuncture collection performed by clean technique on the left anticubitus. Total of 1 attempts were made. Slight pressure and a bandage/dressing were applied to the site(s). The patient experienced no complications. The following specimens were processed according to instructions and sent to [facility] laboratories LT BLUE 1 Lt Green SST 1 RED LAV PPT 2 DK GREEN (L) DK GREEN (S)/// Fibrosure set BLUE,SST & LAV KHAN DK BLUE (K2) DK BLUE (S) ACD RST BLOOD CULTURE SET BLOOD CULTURE (AFB AND FUNGUS ) VERIFYNOW Monogram TYPENEX (LAV TOP) ARM BAND ON PATIENT Z plasma preservative tube (call lab for tube)ARUP Vasoactive Intestinal Peptide (call lab for tube)ARUP FEDEX ( NIPT) Thrombotic Risk Reflex Panel URINE URINE CULTURE APTIMA URINE STOOL [facility] 2024-05-14 10:55:07 Will consider checking EBV PCR. Provided results are inconclusive for anything aside from past exposure/infection. [facility] 2024-03-01 09:45:00 Images from the original note were not included. Venipuncture collection performed by clean technique on the left anticubitus. Total of 1 attempts were made. Slight pressure and a bandage/dressing were applied to the site(s). The patient experienced no complications. The following specimens were processed according to instructions and sent to [facility] laboratories per lab order on 03/01/2024 : LT BLUE SST 1 RED LAV 1 PPT DK GREEN (LiHep) DK GREEN (SodH) KHAN DK BLUE (K2) DK BLUE (S) ACD Blood Culture NIPT/NTD [facility] 2024-01-02 16:27:01 Images from the original note were not included. Notified pt of physician review and recommendations from recent MEDARDO and cardiac CT. Pt verbalized understanding. Nancy Best MD P Cardiology Nurse MEDARDO study showed normal circulation in the lower extremities. I have also reviewed Cardiac CT images which showed normal coronary artery patency with no evidence of coronary atherosclerosis or stenosis. All these tests are reassuring. Chest pain is very unlikely to be due to angina. Nickie Nevarez RN [facility] 2023-12-21 09:10:00 Patient here for Cardiac Coronary CT. Diagnosis is high probability of CAD. States no caffeine in 24 hours, no use of Cialis, Viagra, Stendra, or Levitra within 24 hours. Initial VS taken at 0846 B/P 125/86, HR 61, Respirations 16, SpO2 97. A 20 gauge IV was placed. At 0847, patient was taken to CT and placed on fingerer showing cardiac rhythm sinus rhythm. HR 61. At 0847, B/P 125/86, and Nitroglycerin 0.8 mg SL was given. After CT, patient was monitored, and at discharge VS were: Time 0910 B/P 113/68, HR 58, Resp 14, SpO2 97. IV was D/C'd and a clean, dry, dressing was placed. Pt denies dizziness, chest pain, or shortness of breath and was discharged in stable condition. [facility] 2023-12-14 12:30:00 Images from the original note were not included. Venipuncture collection performed by clean technique on the left anticubitus. Total of 1 attempts were made. Slight pressure and a bandage/dressing were applied to the site(s). The patient experienced no complications. The following specimens were processed according to instructions and sent to [facility] laboratories LT BLUE Lt Green SST 2 RED LAV PPT DK GREEN (L) DK GREEN (S)/// Fibrosure set BLUE,SST & LAV KHAN DK BLUE (K2) DK BLUE (S) ACD RST BLOOD CULTURE SET BLOOD CULTURE (AFB AND FUNGUS ) VERIFYNOW Monogram TYPENEX (LAV TOP) ARM BAND ON PATIENT Z plasma preservative tube (call lab for tube)ARUP Vasoactive Intestinal Peptide (call lab for tube)ARUP FEDEX ( NIPT) Thrombotic Risk Reflex Panel URINE URINE CULTURE APTIMA URINE STOOL [facility] 2023-11-30 11:37:48 Images from the original note were not included. [employer] start DME The following has been sent to the provider for completion via parachute/FAX Orders pended for [employer] company Prescription for APAP Sleep study /data report dated - Home 09.27.2023 Demographics - Face sheet Insurance Information Current OVN 11.30.2023 Progress Notes from office visit prior to sleep study - 09.22.2023 Follow up due 31-90 days following initiation of any device. Gloria Villa [facility] 2023-11-29 15:54:35 TRANSITIONAL CARE MANAGEMENT ASSESSMENT 11/29/2023 Sen Hdz [id number] Sen Hdz is a 43 year old /White male was admitted on 11/25/23 to [facility], ADC MED SURG. He was discharged on 11/26/23 with discharge disposition of HR- Routine Discharge. Admitting Physician: Nohelia Cuevas Discharge Diagnosis: Chest pain, unspecified type [R07.9] Pt. Voices he does have a blood pressure machine and will be checking it daily and recording.Pt. confirmed my number and instructed to call back if has questions. I thanked the patient for their time and choosing [facility].Pt. Verbalized understanding discharge instructions. Linked Episodes Type: Episode: Status: Noted: Resolved: Last update: Updated by: TRANSITION OF CARE tcm Active 11/29/2023 11/29/2023 3:53 PM Brooke Nance LVN Comments: TCM Hqf-soel-ms-face outreach documentation: Discharge Assessment Chart Assessed: 11/29/23 TCM Outreach Completed: 11/29/23 Do you have a few minutes to speak with me about how you are doing at home?: Yes Discharge Instructions Do you understand your at-home instructions?: Yes Medications Have you filled your prescriptions and do you have them in your home? : Yes Do you know how to take your medications?: Yes Can you provide me with the names or descriptions of any bdgk-gee-qypcoga or supplements you are currently taking?: No Supplies Did you receive applicable home medical supplies/equipment?: N/A Follow Up Appointment Has a follow up appointment been scheduled?: Yes (scheduled on YOHANA f/u.) Do you have any questions about your follow up appointments?: No Are you able to get to your appointment? Who will be taking you?: Yes (self) Home Health Assistance Has the home health nurse contacted you since you've been home?: N/A Survey - Recognition Is there anything you would like to share about your recent hospitalization, or anyone you would like to recognize?: No Do you have any suggestions for improvement?: No Do you have any other questions or concerns at this time?: No Future Appointments: Future Appointments Provider Department Dept Phone 11/30/2023 10:00 AM Jennifer Taylor FNP [facility] Pulmonary & Sleep Medicine, [facility] [phone] 12/08/2023 7:00 AM Sarai Tucker PA [facility] [phone] 12/13/2023 9:30 AM Nancy Best MD [facility] [phone] 12/14/2023 11:30 AM Dylon Vargas MD [facility] Infectious Diseases, [facility] [phone] Brooke Nance LVN [facility] 2023-11-26 15:00:10 Adequate for discharge Ashley Van RN [facility] 2023-11-26 12:59:11 Progressing as expected EYT [facility] 2023-11-25 20:04:37 Problem: Pain Goal: Control of pain at or below patient's documented comfort goal Outcome: Progressing as expected Goal: Reduction in pain sensation Outcome: Progressing as expected Problem: Discharge Planning Goal: Adequate for discharge Outcome: Progressing as expected Goal: Effective communication Outcome: Progressing as expected Problem: Nutrition Deficit Goal: Adequate nutritional intake Outcome: Progressing as expected Problem: Pain Goal: Control of pain at or below patient's documented comfort goal Outcome: Progressing as expected Goal: Reduction in pain sensation Outcome: Progressing as expected Problem: Pain Goal: Control of pain at or below patient's documented comfort goal Outcome: Progressing as expected Goal: Reduction in pain sensation Outcome: Progressing as expected Veroncia Enriquez RN [facility] 2023-11-25 17:48:45 Problem: Discharge Planning Goal: Adequate for discharge Outcome: Progressing as expected Goal: Effective communication Outcome: Progressing as expected Problem: Nutrition Deficit Goal: Adequate nutritional intake Outcome: Progressing as expected Problem: Pain Goal: Control of pain at or below patient's documented comfort goal Outcome: Progressing as expected Goal: Reduction in pain sensation Outcome: Progressing as expected Problem: Pain Goal: Control of pain at or below patient's documented comfort goal Outcome: Progressing as expected Goal: Reduction in pain sensation Outcome: Progressing as expected T [facility] 2023-11-25 13:26:19 Report given to Francisco SPARKS. Carol Stubbs RN [facility] 2023-11-25 11:45:39 Continues in no distress Tarsha Jolly RN [facility] 2023-11-25 10:07:50 Brought here by cardiology clinic. Has been having chest pain for 6weeks. Here two days ago with no acute findings. [facility] 2023-11-25 09:43:00 AdmissionCare Guideline: Chest Pain - OBS, Observation Based on the indications selected for the patient, the bed status of Observation was determined to be MET The following indications were selected as present at the time of evaluation of the patient: - Observation Care Admission Criteria - Observation care is indicated for 1 or more of the following: - Chest pain (or other anginal equivalent) not classified as low risk for acute coronary syndrome, as indicated by 1 or more of the following: - ECG consistent with possible acute myocardial ischemia (eg, ST-segment or T-wave changes that are new, dynamic, or otherwise suspicious for acute ischemia) AdmissionCare documentation entered by: Pedro Eugene [facility], 28th edition, Copyright ? 2023 [facility] All Rights Reserved. [id number] T [facility] 2023-11-25 09:00:00 Addended by: SARA LOCKWOOD on: 11/25/2023 09:56 AM Modules accepted: Orders T [facility] 2023-11-25 09:00:00 Addended by: GRAHAM MARIE RN on: 11/25/2023 10:05 AM Modules accepted: Orders Graham Marie RN [facility] 2023-11-23 17:00:19 Discussed dc instructions, medications, and follow up. Patient verbalized understanding. Patient is aaox4, NAD, RR e/u on RA. Patient ambulatory to [facility]. Krista Sharpe RN [facility] 2023-11-23 12:30:00 Patient given printed and verbal discharge instructions, encouraged hydration and proper nutrition Prescriptions provided: Nitroglycerin Patient verbalized understanding of instructions. Patient awake alert oriented, respirations even and unlabored, no acute distress noted, skin warm & dry, color appropriate for race, moves all extremities well. Patient encouraged to follow up with PCP and to keep all appropriate appointments as scheduled or to return to ED for new/prolonged/worsening of symptoms No adverse reaction to medications given in ER noted upon discharge PIV d'cd without complications, dressing to site, catheter intact. Patient ambulatory to [facility], in possession of all belongings. [facility] 2023-11-23 11:57:06 Sen Hdz is a 43 year old male who presents to the ED in wheelchair with complaints of CP starting 1 hour pt reports CP has been going off and on for a month now reports usually happens at night this is the first time its happened during the day pt pain is a 1 now out of 10 AOx4. Respirations even and unlabored. Skin warm and dry. NAD noted. Patient to room for further evaluation. [facility] Jarad Herring RN [facility] 2023-11-21 10:26:58 Duplicate encounter. [facility] 2023-11-17 10:33:50 Telephone note: Discussed any further questions patient had regarding difference between PaO2 and SpO2 (pulse ox). Explained pathophysiology and techniques of both measurements in values. He did reports that in the past 1- 1.5 months he wakes up due to not being able to sleep or pain in chest not every night but every other night that will wake him. Only thing that helps is time however has tried nebulizer/ albuterol inhaler without improvement of symptoms. He has sleep study on file with mild JAMEY and is scheduled to see sleep medicine in November in which they may be able to further evaluate. He also wanted to mention that he recently did hyperbaric chamber about 1.5 weeks ago in which after this he noticed improvement in his extremity pain however only for about 1-2 hours. Patient's questions were addressed and was appreciative. Luis Bueno MD Division of Allergy & Immunology PGY-5, Allergy & Immunology Fellow [facility] 2023-11-09 08:45:00 Images from the original note were not included. Venipuncture collection performed by clean technique on the left anticubitus. Total of 1 attempts were made. Slight pressure and a bandage/dressing were applied to the site(s). The patient experienced no complications. The following specimens were processed according to instructions and sent to [facility] laboratories per lab order on 11/09/2023 : LT BLUE SST 5 1LT GREEN RED LAV 1 PPT DK GREEN (LiHep) 1 DK GREEN (SodH) KHAN DK BLUE (K2) DK BLUE (S) ACD Blood Culture NIPT/NTD Patient stated he ate oatmegurmeet Fuentes Teddy 11/09/2023 8:57 AM [facility] 2023-10-27 11:00:00 Addended by: JENNIFER BELLO MD on: 11/09/2023 09:01 PM Modules accepted: Level of Service [facility] 2023-10-02 16:32:00 Please review. Carina Davis RN [facility] 2023-09-27 13:49:33 Called patient scheduled an appt for pneumovax on 10/09 Zohra Horta [facility] 2023-09-27 08:40:24 Please assist with scheduling next available nurse visit for pneumovax immunization. Lupe Javed LVN [facility] 2023-09-26 13:41:22 Sen Hdz is a 43 year old male Pt is calling stating he is wanting to schedule a nurse visit for the pneumovax 23 vaccine. Please call to discuss. Please advise. Michela Nova [facility] 2023-09-19 09:15:55 Left message for patient to schedule nurse and lab visit. Siobhan Mixon MA [facility] 2023-09-19 09:15:50 ----- Message from Jennifer Bello MD sent at 09/16/2023 3:49 PM CDT ----- Regarding: Scheduling nurse only visits Dear all, Please schedule nurse only visits for the followin) PPSV-23 2) repeat Strep pneumo titers, immunoglobulin levels in 6 weeks (order placed). The patient does not need to be fasting for labs. Thanks for all of your help! Jennifer [facility] 2023-09-19 08:21:09 Please assist with scheduling next available nurse visit for pneumovax 23 immunization per provider request. Lupe Javed LVN [facility] 2023-09-18 19:21:34 Orders/ communication note: I sent patient Orthoconehart message regarding PPSV 23 vaccine order and lab orders in place for 6 weeks after he receives that vaccine for repeat titers. Immunodeficiency Hypogammaglobulinemia Patient is to have nurse visit for penumovax 23 valent vaccine then 6 weeks after vaccine given have blood work for repeat titer response. - PNEUMOCOCCAL VACCINE, 23-VALENT (PNEUMOVAX); Future Luis Bueno MD Division of Allergy & Immunology PGY-4, Allergy & Immunology Fellow [facility] 2023-09-15 16:58:24 Dr. Vargas, Please advise on patient's mychart request. Thank you Nancy Aparicio RN [facility] 2023-09-07 10:15:00 Images from the original note were not included. Venipuncture collection performed by clean technique on the left anticubitus. Total of 1 attempts were made. Slight pressure and a bandage/dressing were applied to the site(s). The patient experienced no complications. The following specimens were processed according to instructions and sent to [facility] laboratories per lab order on 09/07/2023 : LT BLUE SST 3 RED LAV PPT DK GREEN (LiHep) 1 DK GREEN (SodH) KHAN DK BLUE (K2) DK BLUE (S) ACD Blood Culture NIPT/NTD [facility] 2023-08-31 07:15:00 Images from the original note were not included. Venipuncture collection performed by clean technique on the left anticubitus. Total of 1 attempts were made. Slight pressure and a bandage/dressing were applied to the site(s). The patient experienced no complications. The following specimens were processed according to instructions and sent to [facility] laboratories per lab order on 08/31/2023 : LT BLUE SST RED LAV PPT DK GREEN (LiHep) DK GREEN (SodH) 2 KHAN DK BLUE (K2) DK BLUE (S) ACD Blood Culture NIPT/NTD [facility] 2023-08-30 10:00:00 Lab must be completed and sent out on the first carrier. Patient was instructed to go to [facility] tomorrow. Gina Espinal 08/30/2023 9:24 AM Gina Espinal [facility] 2023-08-29 11:19:52 Addended by: LUIS BUENO on: 08/29/2023 11:19 AM Modules accepted: Orders [facility] 2023-08-29 08:08:31 Encounter for Orders: I called an left message that patient has one more lab that needs to be collected between Tuesday- BEFORE 9:30 AM . Immunodeficiency Patient it to have labs collected through BEFORE 9:30 AM - [facility] [place]. Sendout- [facility]# [id number] Neutrophil Oxidative Burst Assay (DHR); Future - [facility] [place]. Sendout- [facility] #[id number] Lymphocyte Antigen and Mitogen Proliferation Panel; Future Luis Bueno MD Division of Allergy & Immunology PGY-4, Allergy & Immunology Fellow [facility] 2023-08-26 09:00:00 Images from the original note were not included. Venipuncture collection performed by clean technique on the left anticubitus. Total of 1 attempts were made. Slight pressure and a bandage/dressing were applied to the site(s). The patient experienced no complications. The following specimens were processed according to instructions and sent to [facility] laboratories per lab order on 08/26/2023 : LT BLUE SST 5 RED 2 LAV 2 PPT DK GREEN (LiHep) 2 DK GREEN (SodH) 2 KHAN DK BLUE (K2) DK BLUE (S) ACD Blood Culture [facility] 2023-08-25 10:00:00 Addended by: JENNIFER BELLO MD on: 09/16/2023 03:48 PM Modules accepted: Orders T [facility] 2023-08-25 10:00:00 Addended by: JENNIFER BELLO MD on: 10/20/2023 04:32 PM Modules accepted: [facility]
[2024-07-01 19:08] LABS: Absolute Basophils 0.1 K/uL (0-0.5); Absolute Eosinophils 0.1 K/uL (0-0.5); Absolute Lymphocytes (CBC) 2.1 K/uL (0.7-4.9); Absolute Monocytes 0.6 K/uL (0.1-1.3); Absolute Neutrophil 4.6 K/uL (1.8-8.0); Basophils % 1.2 % (0-1.3); Eosinophils % 1.6 % (0-4.4); Hematocrit 48.1 % (39.6-49.0); Hemoglobin 16.8 g/dL (13.6-17.9); Lymphocytes % 28.1 % (15.3-44.8); MCH 31.2 pg (27.0-35.0); MCHC 34.9 g/dL (32.0-36.0); MCV 89.6 fL (80-100); MPV 8.4 fL (7.6-11.3); Monocytes % 8.5 % (3.3-12.3); Neutrophils % 60.6 % (41.7-73.7); Nucleated Red Blood Cells % 0.2 % (0-0); Platelets 253 thou/uL (152-406); RBC Red Blood Cell Count 5.38 M/uL (4.33-5.43); Red Cell Distribution Width 13.6 % (12.1-15.2)
[2024-07-01] MEDS ORDERED: FENTANYL CITR 100 MCG/2 ML ONE (19:10)
[2024-07-01] MEDS ORDERED: DIAZEPAM 10 MG/2 ML INJ SYRINGE ONE (19:13)
[2024-07-01] MEDS ORDERED: dexAMETHasone 10 MG/ML VIAL ONE (19:14)
[2024-07-01] MEDS ORDERED: ONDANSETRON 4 MG/2 ML VIAL ONE (19:14)
[2024-07-01] MEDS ORDERED: NA CHLORIDE 0.9% 1,000 ML ONE (19:14)
[2024-07-01 19:23] LABS: Albumin 3.8 g/dL (3.4-5.0); Albumin/Globulin Ratio 1.4 (1.1-1.8); Anion Gap 9.8 mEq/L (5.0-15.0); Bilirubin Total 0.7 mg/dL (0.2-1.0); Globulin 2.7 g/dL (2.3-3.5); Potassium 3.8 mEq/L (3.5-5.1); Protein, Total 6.5 g/dL (6.4-8.2)
--- NOTE | 2024-07-01 20:35 | RAD REPORT ---
EXAM: CT brain without contrast HISTORY: fall COMPARISON: None TECHNIQUE: Multiple contiguous axial images were obtained and a CT of the brain without contrast. Sag ittal and coronal reformats were performed. FINDINGS: No evidence of hydrocephalus, intracranial hemorrhage, or extra-axial fluid collection. The brain is normal in morphology. The calvarium is intact. The visualized paranasal sinuses and mastoid air cells are essentially clear . IMPRESSION: No evidence of acute intracranial abnormality. EXAM: CT of the cervical spine without contrast HISTORY: fall COMPARISON: None TECHNIQUE: Multiple contiguous axial images were obtained in a CT of the cervical spine without contr ast. Sagittal and coronal reformats were performed. FINDINGS: The vertebral bodies demonstrate normal height and alignment. No evidence of acute fracture or subluxation.. No degenerative changes are present. No prevertebral soft tissue swelling is seen. The posterior facets are well aligned. Normal alignment of the skull base with the cervical spine is seen. The lung apices are unremarkable. IMPRESSION: No evidence of acute osseous abnormality of the cervical spine.
--- NOTE | 2024-07-01 20:36 | RAD REPORT ---
EXAMINATION: CT LUMBAR SPINE WITHOUT CONTRAST CLINICAL INDICATION: Male, 44 years old. fall;Lower back pain TECHNIQUE: Axial CT images were obtained through the lumbar spine in soft tissue and bone windows wit hout intravenous contrast. Coronal and Sagittal reformatted images were created from the data set. One or more of the following dose reduction techniques were used: Automated exposure control, adjustm ent of the mA and/ or kV according to patient size, and/or iterative reconstruction. Unless otherwise specified, incidental findings do not require dedicated imaging follow-up. COMPARISON: No prior exam. FINDINGS: For purposes of this dictation, it is assumed that there are 5 non rib-bearing lumbar type vertebrae, and the most caudal fully segmented lumbar vertebra is labeled L5. ALIGNMENT: The lumbar spine demonstrates normal alignment without scoliosis or spondylolisthesis. BONES: Vertebral body heights are preserved. No aggressive osseous lesions. DISCS: Intervertebral disc space heights are maintained. LEVELS: No significant spinal canal or neural foraminal stenosis. No visualized abnormality within th e spinal canal. SOFT TISSUE: No soft tissue abnormalities. IMPRESSION: No acute lumbar spine abnormalities.
--- NOTE | 2024-07-01 20:39 | RAD REPORT ---
EXAMINATION: CT PELVIS WITHOUT CONTRAST CLINICAL INDICATION: Male, 44 years old.[facility] MAIN pain, fall TECHNIQUE: CT pelvis was performed, without IV contrast, as per department protocol. Axial, sagittal and coronal reconstructions were obtained. One or more of the following dose reduction techniques were used: Automated exposure control, adjustment of the mA and/or kV according to patient size, and/ or iterative reconstruction. Unless otherwise specified, incidental findings do not require dedicated imaging follow-up. COMPARISON: No prior exam. FINDINGS: The lack of intravenous contrast limits the sensitivity of this exam for evaluation of solid visceral organs, vascular structures, and retroperitoneum. MUSCULOSKELETAL: No acute or suspicious osseous abnormality. URINARY SYSTEM: Included lower ureters are unremarkable. Urinary bladder is unremarkable. GASTROINTESTINAL TRACT: Included small bowel and large bowel is normal in caliber. No wall thickening or bowel inflammatory changes. LYMPH NODES: No lymphadenopathy. ABDOMINAL AORTA AND OTHER VESSELS: Normal caliber of the iliac vessels. ADDITIONAL FINDINGS: None. IMPRESSION: No acute abnormalities of the bony pelvis. Evaluation limited by lack of IV contrast.
[2024-07-01] MEDS ORDERED: METHOCARBAMOL 1,000 MG/10 ML VIAL ONE (21:03)
[2024-07-01] MEDS ORDERED: HYDROCODONE/APAP 10/325 TAB ONE (21:04)
[2024-07-01] MEDS ORDERED: NA CHLORIDE 0.9% 100 ML ONE (21:04)
--- NOTE | 2024-07-01 21:38 | EDPHYS ---
Physician Documentation [facility] Name: Kalia Mallory III Age: 44 yrs Sex: Male : 1980 Arrival Date: 07/01/2024 Time: 18:16 Bed 14 Private MD: ED Physician Samuel Hamilton HPI: 07/01 18:45 This 44 yrs old Male presents to ER via Wheelchair with complaints of Fall Injury. cp 18:45 Details of fall: The patient fell from an upright position, while walking, and struck a cp tile surface. Onset: The symptoms/episode began/occurred 2 day(s) ago. 18:45 Associated injuries: The patient sustained injury to the low back, pain. cp 18:45 Severity of symptoms: in the emergency department the symptoms are unchanged, despite cp home interventions. Historical: - Allergies: 18:36 NSAIDS; iw - PMHx: 18:36 Hypertensive disorder; hypogammaglobulenimia; iw - Immunization history:: Adult Immunizations unknown. - Infectious Disease History:: Denies. - Social history:: Smoking status: Patient denies any tobacco usage or history of. ROS: 18:50 Back: Positive for pain at rest, pain with movement, of the low back, cp 18:50 Constitutional: Negative for body aches, chills, fever, cp 18:50 Abdomen/GI: Negative for abdominal pain, vomiting, diarrhea, constipation, bowel incontinence, 18:50 : Negative for urinary symptoms, bladder incontinence, testicular pain 18:50 Respiratory: Negative for cough, shortness of breath, wheezing, cp 18:50 Neuro: Negative for altered mental status, dizziness, headache, numbness, tingling, weakness, 18:50 Eyes: Negative for injury, pain, redness, and discharge, cp 18:50 All other systems are negative, Exam: 18:55 Head/Face: Normocephalic, atraumatic. cp 18:55 Constitutional: The patient appears in no acute distress, alert, awake, non-diaphoretic, non-toxic, well developed, well nourished, uncomfortable, 18:55 Eyes: Periorbital structures: appear normal, Conjunctiva: normal, no exudate, no cp injection, Sclera: no appreciated abnormality, Lids and lashes: appear normal, bilaterally, 18:55 ENT: External ear(s): are unremarkable, Nose: is normal, Mouth: Lips: moist, Oral cp mucosa: moist, Posterior pharynx: Airway: no evidence of obstruction, patent, 18:55 Neck: ROM/movement: is normal, is supple, without pain, no range of motions limitations, 18:55 Chest/axilla: Inspection: normal, Palpation: is normal, no crepitus, no tenderness, 18:55 Cardiovascular: Rate: normal, Rhythm: regular, Edema: is not appreciated, JVD: is not appreciated, 18:55 Respiratory: the patient does not display signs of respiratory distress, Respirations: normal, no use of accessory muscles, no retractions, labored breathing, is not present, Breath sounds: are clear throughout, no decreased breath sounds, no stridor, no wheezing, 18:55 Abdomen/GI: Inspection: abdomen appears normal, Palpation: abdomen is soft and non-tender, in all quadrants, 18:55 Back: pain, that is severe, of the low back area and mid back area, ROM is painful, with all movement, 18:55 Neuro: Orientation: to person, place \T\ time. Mentation: is normal, Motor: moves all fours, no focal deficits, Sensation: is normal, Vital Signs: 18:36 BP 142 / 94; Pulse 92; Resp 16; Pulse Ox 98% on R/A; iw 19:45 BP 136 / 100; Pulse 83; Resp 20; Pulse Ox 97% ; kj2 20:45 BP 152 / 91; Pulse 77; Resp 20; Temp 98; Pulse Ox 98% ; kj2 MDM: 18:36 Medical Screening Exam initiated cp 21:36 Data reviewed: vital signs, nurses notes, lab test result(s), radiologic studies, CT cp scan, and as a result, I will discharge patient. 21:36 Differential diagnosis: contusion, fracture, spinal injury. I considered the following cp discharge prescriptions or medication management in the emergency department Medications were administered in the Emergency Department. See MAR. Care significantly affected by the following chronic conditions: Hypertension, low back pain. 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 Response to treatment: the patient's symptoms have markedly improved after treatment, and as a result, I will discharge patient. 07/01 18:45 Order name: CBC with Diff; Complete Time: 20:40 cp 07/01 20:41 Interpretation: Reviewed. 07/01 18:45 Order name: CMP; Complete Time: 20:40 cp 07/01 20:40 Interpretation: Normal except: CL 108; GLUC 124; GFR 69. cp 07/01 18:45 Order name: Lipase; Complete Time: 20:40 cp 07/01 18:49 Order name: CT Head C Spine; Complete Time: 20:40 cp 07/01 20:42 Interpretation: Reviewed report. 07/01 18:49 Order name: CT Lumbar Spine Wo Con; Complete Time: 20:40 cp 07/01 18:49 Order name: CT Pelvis wo Cont; Complete Time: 20:40 cp 07/01 20:42 Interpretation: Report reviewed. 07/01 18:45 Order name: IV Saline Lock; Complete Time: 19:23 cp 07/01 18:45 Order name: Labs collected and sent; Complete Time: 19:24 cp Administered Medications: 19:23 Drug: Ondansetron IVP 4 mg IVP once; over 2 minutes Route: IVP; Site: right antecubital;kj2 20:56 Follow up: Response: No adverse reaction kj2 19:23 Drug: NS 0.9% IV 1000 ml IV at 1 bolus Per protocol; to be given as a bolus over 60 kj2 minutes Route: IV; Rate: 1 bolus; Site: right antecubital; 19:23 Drug: Diazepam IVP 5 mg IVP once Route: IVP; Site: right antecubital; kj2 20:56 Follow up: Response: No adverse reaction kj2 19:23 Drug: Dexamethasone IVP 10 mg IVP once; (not to exceed 40 mg) Route: IVP; Site: right kj2 antecubital; 20:56 Follow up: Response: No adverse reaction kj2 19:24 Drug: fentaNYL (PF) IVP 50 mcg IVP once Route: IVP; Site: right antecubital; kj2 20:55 Follow up: Response: No adverse reaction kj2 21:17 Drug: HYDROcodone-acetaminophen PO 10 mg-325 mg 1 tabs PO once Route: PO; kj2 21:42 Follow up: Response: No adverse reaction kj2 21:17 Drug: Methocarbamol IVPB 1 grams IVPB once over 1 hrs; (mix in NS 100 mL) Route: IVPB; kj2 Infused Over: 1 hrs; Site: right antecubital; 22:29 Follow up: IV Status: Completed infusion; IV Intake: 100ml kj2 Disposition: 07/02 02:09 Co-signature as Attending Physician, Samuel Hamilton MD I agree with the assessment and poppy plan of care. Disposition Summary: 07/01/24 21:37 Discharge Ordered Notes: may take Baclofen instead of prescribed Methocarbamol Location: Home cp Problem: an acute exacerbation cp Symptoms: have improved cp Condition: Stable cp Diagnosis - Fall on same level from slipping, tripping and stumbling with subsequent striking cp against object - Low back pain cp Followup: cp - With: Private Physician - When: 2 - 3 days - Reason: Recheck today's complaints Discharge Instructions: - Discharge Summary Sheet cp - Chronic Back Pain cp - Fall Prevention in the Home, Adult cp - Heat Therapy cp - Back Exercises cp Forms: - Medication Reconciliation Form cp - Antibiotic Education cp - Prescription Opioid Use cp - Patient Portal Instructions cp - Leadership Thank You Letter cp Prescriptions: - Ultracet 37.5-325 mg Oral tablet - take 1 tablet ORAL route every 6 hours - for up to 5 days; do not exceed 8 cp tablets per day.; 15 tablet; Refills: 0, Product Selection Permitted - Baclofen 10 mg Oral Tablet - take 1 tablet ORAL route 3 times per day; 20 tablet; Refills: 0, Product cp Selection Permitted - Medrol (Ryan) 4 mg Oral Tablets, Dose Pack - take 1 tablet ORAL route as directed - follow package instructions; 1 packet; cp Refills: 0, Product Selection Permitted Signatures: Dispatcher [employer] Samuel Landis MD MD cha Williams, Irene, RN RN iw Page, Corey, PA PA cp Jordan, Krystal, RN RN kj2 Corrections: (The following items were deleted from the chart) 07/01 18:49 18:49 Spine Lumbar Wo Con+CT.RAD.BRZ ordered. EDMS EDMS 18:49 18:49 Pelvis Wo Cont+CT.RAD.BRZ ordered. EDMS EDMS :06/30 18:55 Constitutional: The patient appears in no acute distress, alert, awake, cp non-diaphoretic, non-toxic, well developed, well nourished, uncomfortable, cp 07/01 20:06/30 18:55 Head/Face: Normocephalic, atraumatic. cp cp
--- NOTE | 2024-07-01 21:38 | ER ---
Nurse's Notes [facility] Name: Kalia Mallory III Age: 44 yrs Sex: Male : 1980 Arrival Date: 07/01/2024 Time: 18:16 Bed 14 Private MD: Diagnosis: Fall on same level from slipping, tripping and stumbling with subsequent striking against object;Low back pain Presentation: 07/01 18:34 Chief complaint: Patient states: fell on Tuesday, he does not remember the fall but he iw was in the bathtub abd the next thing he remembers is he was on the floor , he has been [facility] with [facility] with [facility]. He is having mid lower back pain since the fall, worse when standing or walking , has been taking methocarbamol for pain. 18:34 Acuity: ADDISON 3 iw 18:36 Coronavirus screen: At this time, the client does not indicate any symptoms associated iw with coronavirus-19. Ebola Screen: No symptoms or risks identified at this time. Initial Sepsis Screen: Does the patient meet any 2 criteria? No. Patient's initial sepsis screen is negative. Does the patient have a suspected source of infection? No. Patient's initial sepsis screen is negative. Risk Assessment: Do you want to hurt yourself or someone else? Patient reports no desire to harm self or others. Onset of symptoms was June 29, 2024. 18:36 Method Of Arrival: Wheelchair iw Historical: - Allergies: 18:36 NSAIDS; iw - PMHx: 18:36 Hypertensive disorder; hypogammaglobulenimia; iw - Immunization history:: Adult Immunizations unknown. - Infectious Disease History:: Denies. - Social history:: Smoking status: Patient denies any tobacco usage or history of. Screenin:45 [facility] ED Fall Risk Assessment (Adult) History of falling in the last 3 months, kj2 including since admission Yes- single mechanical fall (1 pt) Confusion or Disorientation No (0 pts) Intoxicated or Sedated No (0 pts) Impaired Gait No (0 pts) Mobility Assist Device Used No (0 pt) Altered Elimination No (0 pt) Score/Fall Risk Level 0 - 2 = Low Risk Maintained a safe environment, Hourly rounding (assess needs \T\ fall precautionary measures) done. Abuse screen: Denies threats or abuse. Denies injuries from another. Nutritional screening: No deficits noted. Tuberculosis screening: No symptoms or risk factors identified. Assessment: 18:45 General: Appears in no apparent distress. Behavior is cooperative. Pain: Complains of kj2 pain in low back pain Pain currently is 8 out of 10 on a pain scale. Neuro: Level of Consciousness is awake, alert, obeys commands, Oriented to person, place, time, situation. Cardiovascular: Patient's skin is warm and dry. Respiratory: Airway is patent Respiratory effort is unlabored. GI: No deficits noted. : No deficits noted. 19:45 Reassessment: Patient appears in no apparent distress at this time. Patient and/or kj2 family updated on plan of care and expected duration. Pain level reassessed. Patient is alert, oriented x 3, equal unlabored respirations, skin warm/dry/pink. 20:42 Reassessment: Patient appears in no apparent distress at this time. Patient and/or kj2 family updated on plan of care and expected duration. Pain level reassessed. Patient is alert, oriented x 3, equal unlabored respirations, skin warm/dry/pink. 21:41 Reassessment: Patient appears in no apparent distress at this time. Patient and/or kj2 family updated on plan of care and expected duration. Pain level reassessed. Patient is alert, oriented x 3, equal unlabored respirations, skin warm/dry/pink. Vital Signs: 18:36 BP 142 / 94; Pulse 92; Resp 16; Pulse Ox 98% on R/A; iw 19:45 BP 136 / 100; Pulse 83; Resp 20; Pulse Ox 97% ; kj2 20:45 BP 152 / 91; Pulse 77; Resp 20; Temp 98; Pulse Ox 98% ; kj2 ED Course: 18:20 Patient arrived in ED. al6 18:21 Samuel Conley PA is PHCP. cp 18:21 Conrad Hernandez MD is Attending Physician. cp 18:36 Triage completed. iw 18:45 No provider procedures requiring assistance completed. kj2 18:45 Patient has correct armband on for positive identification. Provided Education on: call kj2 light. 18:45 Arm band placed on Patient placed. kj2 18:46 Denia Hutchison RN is Primary Nurse. kj2 18:55 Inserted saline lock: 20 gauge in right antecubital area, using aseptic technique. kj2 Blood collected. Flushed with 10 mL NS. 19:40 CT Head C Spine In Process Unspecified. EDMS 19:41 CT Lumbar Spine Wo Con In Process Unspecified. EDMS 19:41 CT Pelvis wo Cont In Process Unspecified. EDMS 20:43 Samuel Hamilton MD is Attending Physician. cp 22:31 IV discontinued, intact, bleeding controlled, No redness/swelling at site. Pressure kj2 dressing applied. Administered Medications: 19:23 Drug: Ondansetron IVP 4 mg IVP once; over 2 minutes Route: IVP; Site: right antecubital;kj2 20:56 Follow up: Response: No adverse reaction kj2 19:23 Drug: NS 0.9% IV 1000 ml IV at 1 bolus Per protocol; to be given as a bolus over 60 kj2 minutes Route: IV; Rate: 1 bolus; Site: right antecubital; 19:23 Drug: Diazepam IVP 5 mg IVP once Route: IVP; Site: right antecubital; kj2 20:56 Follow up: Response: No adverse reaction kj2 19:23 Drug: Dexamethasone IVP 10 mg IVP once; (not to exceed 40 mg) Route: IVP; Site: right kj2 antecubital; 20:56 Follow up: Response: No adverse reaction kj2 19:24 Drug: fentaNYL (PF) IVP 50 mcg IVP once Route: IVP; Site: right antecubital; kj2 20:55 Follow up: Response: No adverse reaction kj2 21:17 Drug: HYDROcodone-acetaminophen PO 10 mg-325 mg 1 tabs PO once Route: PO; kj2 21:42 Follow up: Response: No adverse reaction kj2 21:17 Drug: Methocarbamol IVPB 1 grams IVPB once over 1 hrs; (mix in NS 100 mL) Route: IVPB; kj2 Infused Over: 1 hrs; Site: right antecubital; 22:29 Follow up: IV Status: Completed infusion; IV Intake: 100ml kj2 Medication: 19:28 VIS not applicable for this client. kj2 Intake: 22:29 IV: 100ml; Total: 100ml. kj2 Outcome: 21:37 Discharge ordered by . cp 21:41 Condition: stable kj2 22:30 Discharged to home ambulatory, kj2 22:30 Discharge instructions given to patient, family, Instructed on discharge instructions, follow up and referral plans. 22:31 Patient left the ED. kj2 Signatures: Dispatcher [employer] Radha Quiroz, RN RN iw Samuel Conley PA PA cp Jordan, Krystal, RN RN kj2 Paula Vieira6
[2024-07-01 22:52] VITALS: BP 152/91; TEMP 98; O2SAT 98
== END 2024-07-01 22:31 | disposition home or self-care (01) ==
LOC: ER 18:16
DX: M54.50 Low back pain, unspecified (principal); W01.198A Fall on same level from slipping, tripping and stumbling with subsequent striking against other object, initial encounter
CPT/HCPCS: 96365; 85025; 36415; 83690; 80053; 72131; 70450; 72125; 72192; 96375; 99284; J3360; J3010; J1100; J2405; J2800; J7030